=== PATIENT | male | born 1940 | race Caucasian/White ===

== ENCOUNTER 2018-07-17 10:44 | Inpatient (IN) | payer MEDICARE ==
[2018-07-17] VITALS (14 sets, daily range): BP systolic 19–181; BP diastolic 50–85
[~2018-07-17] VITALS: Ht 182.9 cm; Wt 118.8 kg
--- NOTE | 2018-07-17 11:28 | RAD ---
EXAM: Chest, single view. HISTORY: Shortness of air. Bradycardia. COMPARISON: None. FINDINGS: A frontal view of the chest is obtained. There is no infiltrate, pleural effusion or pneumothorax. There is a prominent cardiac silhouette, likely due to portable technique. There is mild interstitial prominence likely due to slightly decreased lung volumes. IMPRESSION: No acute pulmonary finding. Electronically signed by: Flor Grimes MD (07/17/2018 11:25 AM) [place] [id number]
--- NOTE | 2018-07-17 11:30 | RAD ---
Three-view left foot study Clinical indications: Bone spur causes pain in the top of the foot. FINDINGS: No acute fracture or dislocation or lytic process is seen. Prominent medial spurring of the first tarsal metatarsal joint and prominent spurring of the joint space between the proximal first and second metatarsal bones is seen. There is spurring and degenerative joint space loss of the second metatarsal phalangeal joint. There is mild joint space loss with mild dorsal spurring involving the first metatarsal phalangeal joint. Prominent plantar spur of the calcaneus is seen. IMPRESSION: No acute osseous abnormality. Degenerative osteoarthritis with spurring. Electronically signed by: Chapincito Garcia MD (07/17/2018 11:27 AM) [facility]
[2018-07-17 11:31] LABS: BASO % 1 % (0-3); EOS # 0.2 x10^3/uL (0.0-0.7); EOS % 4 % (0-3); HEMATOCRIT 43.9 % (39.0-53.0); HEMOGLOBIN 14.8 g/dL (13.0-17.5); LYMPH # 1.9 x10^3/uL (1.0-4.8); LYMPH % 34 % (24-48); MEAN CORPUSCULAR HEMOGLOBIN 32 pg (25-35); MEAN CORPUSCULAR HGB CONC 34 g/dL (31-37); MEAN CORPUSCULAR VOLUME 95 fL (79-100); MONO # 0.4 x10^3/uL (0.0-1.1); MONO % 7 % (0-9); NEUT # 3.1 x10^3uL (1.8-7.7); NEUT % 54 % (31-73); PLATELET COUNT 207 x10^3/uL (140-400); RED BLOOD COUNT 4.61 x10^6/uL (4.30-5.70); RED CELL DISTRIBUTION WIDTH 13.4 % (11.5-14.5); WHITE BLOOD COUNT 5.8 x10^3/uL (4.0-11.0)
[2018-07-17 11:39] LABS: CALCIUM 9.2 mg/dL (8.5-10.1); CREATININE 1.4 mg/dL (0.7-1.3); POTASSIUM 4.6 mmol/L (3.5-5.1)
[2018-07-17 11:45] LABS: ALBUMIN 3.7 g/dL (3.4-5.0); MAGNESIUM 2.3 mg/dL (1.8-2.4); TOTAL BILIRUBIN 0.8 mg/dL (0.2-1.0); TOTAL PROTEIN 7.4 g/dL (6.4-8.2)
[2018-07-17 11:48] LABS: PROTHROMBIN TIME PATIENT 13.8 SEC (11.7-14.0)
[2018-07-17 11:54] LABS: FREE T4 1.16 ng/dL (0.76-1.46); THYROID STIM HORMONE (TSH) 2.72 uIU/mL (0.358-3.74)
--- NOTE | 2018-07-17 12:06 | PHYS DOC ---
Past Medical History Past Medical History: No Pertinent History Past Surgical History: Other Additional Past Surgical Histo: hemorrhoids Alcohol Use: Occasionally Drug Use: None Adult General Chief Complaint Chief Complaint: BRADYCARDIA HPI HPI Patient is a 78 year old was sent here for [facility] clinic for complete heart block. Patient went there today for evaluation of a bone spur on his left foot. When they checked him in, his heart rate was slow so they did an EKG and it showed complete heart block so they sent him here for evaluation. Patient denies any chest pain, no trouble breathing, no nausea vomiting. Patient denies any dizziness. Patient is not on any medication beside some supplemental vitamins. He denies any history of heart problem, denies any history of blood clot disorder. Patient denies any recent travel or operation. He denies any cough or fever. Review of Systems Review of Systems Constitutional: Denies fever or chills [] Eyes: Denies change in visual acuity, redness, or eye pain [] HENT: Denies nasal congestion or sore throat [] Respiratory: Denies cough or shortness of breath [] Cardiovascular: No additional information not addressed in HPI [] GI: Denies abdominal pain, nausea, vomiting, bloody stools or diarrhea [] : Denies dysuria or hematuria [] Musculoskeletal: Denies back pain or joint pain [] Integument: Denies rash or skin lesions [] Neurologic: Denies headache, focal weakness or sensory changes [] Endocrine: Denies polyuria or polydipsia [] All other systems were reviewed and found to be within normal limits, except as documented in this note. Current Medications Current Medications Current Medications Medications (Trade) Dose Ordered Sig/[facility] Start Time Stop Time Status Last Admin Dose Admin Ondansetron HCl (Zofran) 4 mg PRN Q8HRS PRN 07/17/18 12:15 07/18/18 12:14 Allergies Allergies Allergies Coded Allergies Type Severity Reaction Last Updated Verified No Known Drug Allergies 07/17/18 No Physical Exam Physical Exam Constitutional: Well developed, well nourished, no acute distress, non-toxic appearance. [] HENT: Normocephalic, atraumatic, bilateral external ears normal, oropharynx moist, no oral exudates, nose normal. [] Eyes: PERRLA, EOMI, conjunctiva normal, no discharge. [] Neck: Normal range of motion, no tenderness, supple, no stridor. [] Cardiovascular:sinus bradycardia, no murmur [] Lungs & Thorax: Bilateral breath sounds clear to auscultation [] Abdomen: Bowel sounds normal, soft, no tenderness, no masses, no pulsatile masses. [] Skin: Warm, dry, no erythema, no rash. [] Back: No tenderness, no CVA tenderness. [] Extremities: No tenderness, no cyanosis, no clubbing, ROM intact, no edema. There is a bone spur on the top of left foot, no open wound. Neurologic: Alert and oriented X 3, normal motor function, normal sensory function, no focal deficits noted. [] Psychologic: Affect normal, judgement normal, mood normal. [] Current Patient Data Vital Signs Vital Signs Date Time Temp Pulse Resp B/P (MAP) Pulse Ox O2 Delivery O2 Flow Rate FiO2 07/17/18 10:44 98.0 28 172/76 (108) 95 Room Air 98.0 Lab Values Laboratory Tests Test 07/17/18 11:22 White Blood Count 5.8 x10^3/uL (4.0-11.0) Red Blood Count 4.61 x10^6/uL (4.30-5.70) Hemoglobin 14.8 g/dL (13.0-17.5) Hematocrit 43.9 % (39.0-53.0) Mean Corpuscular Volume 95 fL (79-100) Mean Corpuscular Hemoglobin 32 pg (25-35) Mean Corpuscular Hemoglobin Concent 34 g/dL (31-37) Red Cell Distribution Width 13.4 % (11.5-14.5) Platelet Count 207 x10^3/uL (140-400) Neutrophils (%) (Auto) 54 % (31-73) Lymphocytes (%) (Auto) 34 % (24-48) Monocytes (%) (Auto) 7 % (0-9) Eosinophils (%) (Auto) 4 % (0-3) H Basophils (%) (Auto) 1 % (0-3) Neutrophils # (Auto) 3.1 x10^3uL (1.8-7.7) Lymphocytes # (Auto) 1.9 x10^3/uL (1.0-4.8) Monocytes # (Auto) 0.4 x10^3/uL (0.0-1.1) Eosinophils # (Auto) 0.2 x10^3/uL (0.0-0.7) Basophils # (Auto) 0.0 x10^3/uL (0.0-0.2) Prothrombin Time 13.8 SEC (11.7-14.0) Prothrombin Time INR 1.1 (0.8-1.1) PTT 22 SEC (24-38) L Sodium Level 141 mmol/L (136-145) Potassium Level 4.6 mmol/L (3.5-5.1) Chloride Level 104 mmol/L (98-107) Carbon Dioxide Level 32 mmol/L (21-32) Anion Gap 5 (6-14) L Blood Urea Nitrogen 20 mg/dL (8-26) Creatinine 1.4 mg/dL (0.7-1.3) H Estimated GFR (Cockcroft-Gault) 49.0 BUN/Creatinine Ratio 14 (6-20) Glucose Level 100 mg/dL (70-99) H Calcium Level 9.2 mg/dL (8.5-10.1) Magnesium Level 2.3 mg/dL (1.8-2.4) Total Bilirubin 0.8 mg/dL (0.2-1.0) Aspartate Amino Transferase (AST) 17 U/L (15-37) Alanine Aminotransferase (ALT) 19 U/L (16-63) Alkaline Phosphatase 78 U/L (46-116) Troponin I Quantitative 0.035 ng/mL (0.000-0.055) UR-Zag-R-Type Natriuretic Peptide 688 pg/mL (0-449) H Total Protein 7.4 g/dL (6.4-8.2) Albumin 3.7 g/dL (3.4-5.0) Albumin/Globulin Ratio 1.0 (1.0-1.7) Thyroid Stimulating Hormone (TSH) 2.720 uIU/mL (0.358-3.74) Free Thyroxine 1.16 ng/dL (0.76-1.46) Laboratory Tests 07/17/18 11:22 Laboratory Tests 07/17/18 11:22 EKG EKG EKG SHOWN SINUS BRADYCARDIA WITH HEART RATE OF 29 BPM. However on the monitor, it appeared he has run of complete heart block. Will admit him to the hospital, will consult cardiology for further evaluation. Radiology/Procedures Radiology/Procedures [] [address] [place] [address] IMAGING REPORT Signed PATIENT: MELISSA MIJARES ACCOUNT: [id number] : 1940 LOCATION: ER AGE: 78 SEX: M EXAM STATUS: PRE ER ORD. PHYSICIAN: LISHA MANE DO REASON: soa PROCEDURE: PORTABLE CHEST 1V EXAM: Chest, single view. HISTORY: Shortness of air. Bradycardia. COMPARISON: None. FINDINGS: A frontal view of the chest is obtained. There is no infiltrate, pleural effusion or pneumothorax. There is a prominent cardiac silhouette, likely due to portable technique. There is mild interstitial prominence likely due to slightly decreased lung volumes. IMPRESSION: No acute pulmonary finding. Electronically signed by: Flor Lemus MD (07/17/2018 11:25 AM) [facility] DICTATED and SIGNED BY: FLOR LEMUS MD DATE: 07/17/18 1124 Course & Med Decision Making Course & Med Decision Making Pertinent Labs and Imaging studies reviewed. (See chart for details) [] Dragon Disclaimer Dragon Disclaimer This electronic medical record was generated, in whole or in part, using a voice recognition dictation system. Departure Departure Impression: Primary Impression: Complete heart block Disposition: ADMITTED INPATIENT Admitting Physician: Sandeep Randall Condition: STABLE Referrals: MONICA HOOK (PCP) LISHA MANE DO Jul 17, 2018 12:06
[2018-07-17] MEDS ORDERED: ONDANSETRON PF 4 MG/2 ML VIAL. IV PRN (12:15)
--- NOTE | 2018-07-17 12:34 | PDOC1 ---
History and Physical Date of Admission Date of Admission DATE: 07/17/18 TIME: 12:34 Identification/Chief Complaint Chief Complaint SEEN IN ER ,78 year old was sent here for [facility] doctor clinic for complete heart block. Patient went there today for evaluation of a bone spur on his left foot.heart rate was slow so they did an EKG and it showed complete heart block Patient denies any chest pain, no trouble breathing, no nausea vomiting. denies any dizziness. Patient is not on any medication beside some supplemental vitamins. He denies any history of heart problem, denies any history of blood clot disorder. pulse now 30 in ER AT BEDSIDE MONITOR He denies any cough or fever. Past Medical History Past Medical History Past Medical History Past Medical History Past Medical History: htn Past Surgical History: Other Additional Past Surgical Histo: hemorrhoids Alcohol Use: Occasionally Drug Use: None family hx obesity ENT: No pertinent hx Renal/: No pertinent hx Family History Family History: High Cholestrol Social History Smoke: No ALCOHOL: none Drugs: None Current Problem List Problem List Problems Medical Problems: (1) Complete heart block Status: Acute Current Medications Current Medications Current Medications Ondansetron HCl (Zofran) 4 mg PRN Q8HRS PRN IV NAUSEA/VOMITING; Start 07/17/18 at 12:15; Stop 07/18/18 at 12:14 Dopamine HCl/ Dextrose 250 ml @ 0 mls/hr 1X ONCE IV ; Start 07/17/18 at 12:30; Stop 07/17/18 at 12:31; Status DC Allergies Allergies: Coded Allergies: No Known Drug Allergies (Unverified , 07/17/18) ROS Review of System Review of Systems Review of Systems Constitutional: Denies fever or chills [] Eyes: Denies change in visual acuity, redness, or eye pain [] HENT: Denies nasal congestion or sore throat [] Respiratory: Denies cough or shortness of breath [] Cardiovascular: No additional information not addressed in HPI [] GI: Denies abdominal pain, nausea, vomiting, bloody stools or diarrhea [] : Denies dysuria or hematuria [] Musculoskeletal: Denies back pain or joint pain [] Integument: Denies rash or skin lesions [] Neurologic: Denies headache, focal weakness or sensory changes [] Endocrine: Denies polyuria or polydipsia [] 14 PT systems were reviewed and found to be within normal limits, except as documented General: No: Chills, Night Sweats, Fatigue, Malaise, Appetite, Other PSYCHOLOGICAL ROS: No: Anxiety, Behavioral Disorder, Concentration difficultie , Decreased libido, Depression, Disorientation, Hallucinations, Hostility, Irritablity, Memory difficulties, Mood Swings, Obsessive thoughts, Physical abuse, Sexual abuse, Sleep disturbances, Suicidal ideation, Other HEENT: No: Heacaches, Visual Changes, Hearing change, Nasal congestion, Nasal discharge, Oral lesions, Sinus pain, Sore Throat, Epistaxis, Sneezing, Snoring, Tinnitus, Vertigo, Vocal changes, Other Hematological and Lymphatic: No: Bleeding Problems, Blood Clots, Blood Transfusions, Brusing, Night Sweats, Pallor, Swollen Lymph Nodes, Other Respiratory: No: Cough, Hemoptysis, Orthopnea, Pleuritic Pain, Shortness of breath, SOB with excertion, Sputum Changes, Stridor, Tachypnea, Wheezing, Other Cardiovascular: No Chest Pain, No Palpitations, No Orthopnea, No Paroxysmal Noc. Dyspnea, No Edema, No Lt Headedness, No Other Gastrointestinal: No Nausea, No Vomiting, No Abdominal Pain, No Diarrhea, No Constipation, No Melena, No Hematochezia, No Other Musculoskeletal: Yes Gait Disturbance, Yes Joint Pain Neurological: No Behavorial Changes, No Bowel/Bladder ControlChng, No Confusion , No Dizziness, No Gait Disturbance, No Headaches, No Impaired Coord/balance, No Memory Loss, No Numbness/Tingling, No Seizures, No Speech Problems, No Tremors, No Visual Changes, No Weakness, No Other Physical Exam Physical Exam Physical Exam Physical Exam Constitutional: Well developed, well nourished, no acute distress, non-toxic appearance. [] HENT: Normocephalic, atraumatic, bilateral external ears normal, oropharynx moist, no oral exudates, nose normal. [] Eyes: PERRLA, EOMI, conjunctiva normal, no discharge. [] Neck: Normal range of motion, no tenderness, supple, no stridor. [] Cardiovascular:sinus bradycardia RATE 29-32 , no murmur [] Lungs & Thorax: Bilateral breath sounds clear to auscultation [] Abdomen: Bowel sounds normal, soft, no tenderness, no masses, no pulsatile masses. [] Skin: Warm, dry, no erythema, no rash. [] Back: No tenderness, no CVA tenderness. [] Extremities: No tenderness, no cyanosis, no clubbing, ROM intact, no edema. There is a bone spur on the top of left foot, Neurologic: Alert and oriented X 3, normal motor function, normal sensory function, no focal deficits noted. [] Psychologic: Affect normal, judgement normal, mood normal. [] General: Alert, Oriented X3, Cooperative, No acute distress HEENT: Atraumatic, PERRLA, EOMI, Mucous membr. moist/pink Lungs: Clear to auscultation, Normal air movement Heart: no thrills, no murmurs Abdomen: Normal bowel sounds, Soft Rectal Exam: not examined Extremities: No cyanosis Neuro: Normal speech, Cranial nerves 3-12 NL Psych/Mental Status: Mental status NL, Mood NL Vitals Vitals Vital Signs Date Time Temp Pulse Resp B/P (MAP) Pulse Ox O2 Delivery O2 Flow Rate FiO2 07/17/18 10:44 98.0 28 172/76 (108) 95 Room Air 98.0 Labs Labs Laboratory Tests Test 07/17/18 11:22 White Blood Count 5.8 x10^3/uL (4.0-11.0) Red Blood Count 4.61 x10^6/uL (4.30-5.70) Hemoglobin 14.8 g/dL (13.0-17.5) Hematocrit 43.9 % (39.0-53.0) Mean Corpuscular Volume 95 fL (79-100) Mean Corpuscular Hemoglobin 32 pg (25-35) Mean Corpuscular Hemoglobin Concent 34 g/dL (31-37) Red Cell Distribution Width 13.4 % (11.5-14.5) Platelet Count 207 x10^3/uL (140-400) Neutrophils (%) (Auto) 54 % (31-73) Lymphocytes (%) (Auto) 34 % (24-48) Monocytes (%) (Auto) 7 % (0-9) Eosinophils (%) (Auto) 4 % (0-3) Basophils (%) (Auto) 1 % (0-3) Neutrophils # (Auto) 3.1 x10^3uL (1.8-7.7) Lymphocytes # (Auto) 1.9 x10^3/uL (1.0-4.8) Monocytes # (Auto) 0.4 x10^3/uL (0.0-1.1) Eosinophils # (Auto) 0.2 x10^3/uL (0.0-0.7) Basophils # (Auto) 0.0 x10^3/uL (0.0-0.2) Prothrombin Time 13.8 SEC (11.7-14.0) Prothromb Time International Ratio 1.1 (0.8-1.1) Activated Partial Thromboplast Time 22 SEC (24-38) Sodium Level 141 mmol/L (136-145) Potassium Level 4.6 mmol/L (3.5-5.1) Chloride Level 104 mmol/L (98-107) Carbon Dioxide Level 32 mmol/L (21-32) Anion Gap 5 (6-14) Blood Urea Nitrogen 20 mg/dL (8-26) Creatinine 1.4 mg/dL (0.7-1.3) Estimated GFR (Cockcroft-Gault) 49.0 BUN/Creatinine Ratio 14 (6-20) Glucose Level 100 mg/dL (70-99) Calcium Level 9.2 mg/dL (8.5-10.1) Magnesium Level 2.3 mg/dL (1.8-2.4) Total Bilirubin 0.8 mg/dL (0.2-1.0) Aspartate Amino Transf (AST/SGOT) 17 U/L (15-37) Alanine Aminotransferase (ALT/SGPT) 19 U/L (16-63) Alkaline Phosphatase 78 U/L (46-116) Troponin I Quantitative 0.035 ng/mL (0.000-0.055) ZG-Gxk-C-Type Natriuretic Peptide 688 pg/mL (0-449) Total Protein 7.4 g/dL (6.4-8.2) Albumin 3.7 g/dL (3.4-5.0) Albumin/Globulin Ratio 1.0 (1.0-1.7) Thyroid Stimulating Hormone (TSH) 2.720 uIU/mL (0.358-3.74) Free Thyroxine 1.16 ng/dL (0.76-1.46) Laboratory Tests Test 07/17/18 11:22 White Blood Count 5.8 x10^3/uL (4.0-11.0) Red Blood Count 4.61 x10^6/uL (4.30-5.70) Hemoglobin 14.8 g/dL (13.0-17.5) Hematocrit 43.9 % (39.0-53.0) Mean Corpuscular Volume 95 fL (79-100) Mean Corpuscular Hemoglobin 32 pg (25-35) Mean Corpuscular Hemoglobin Concent 34 g/dL (31-37) Red Cell Distribution Width 13.4 % (11.5-14.5) Platelet Count 207 x10^3/uL (140-400) Neutrophils (%) (Auto) 54 % (31-73) Lymphocytes (%) (Auto) 34 % (24-48) Monocytes (%) (Auto) 7 % (0-9) Eosinophils (%) (Auto) 4 % (0-3) Basophils (%) (Auto) 1 % (0-3) Neutrophils # (Auto) 3.1 x10^3uL (1.8-7.7) Lymphocytes # (Auto) 1.9 x10^3/uL (1.0-4.8) Monocytes # (Auto) 0.4 x10^3/uL (0.0-1.1) Eosinophils # (Auto) 0.2 x10^3/uL (0.0-0.7) Basophils # (Auto) 0.0 x10^3/uL (0.0-0.2) Prothrombin Time 13.8 SEC (11.7-14.0) Prothromb Time International Ratio 1.1 (0.8-1.1) Activated Partial Thromboplast Time 22 SEC (24-38) Sodium Level 141 mmol/L (136-145) Potassium Level 4.6 mmol/L (3.5-5.1) Chloride Level 104 mmol/L (98-107) Carbon Dioxide Level 32 mmol/L (21-32) Anion Gap 5 (6-14) Blood Urea Nitrogen 20 mg/dL (8-26) Creatinine 1.4 mg/dL (0.7-1.3) Estimated GFR (Cockcroft-Gault) 49.0 BUN/Creatinine Ratio 14 (6-20) Glucose Level 100 mg/dL (70-99) Calcium Level 9.2 mg/dL (8.5-10.1) Magnesium Level 2.3 mg/dL (1.8-2.4) Total Bilirubin 0.8 mg/dL (0.2-1.0) Aspartate Amino Transf (AST/SGOT) 17 U/L (15-37) Alanine Aminotransferase (ALT/SGPT) 19 U/L (16-63) Alkaline Phosphatase 78 U/L (46-116) Troponin I Quantitative 0.035 ng/mL (0.000-0.055) SM-Tqk-W-Type Natriuretic Peptide 688 pg/mL (0-449) Total Protein 7.4 g/dL (6.4-8.2) Albumin 3.7 g/dL (3.4-5.0) Albumin/Globulin Ratio 1.0 (1.0-1.7) Thyroid Stimulating Hormone (TSH) 2.720 uIU/mL (0.358-3.74) Free Thyroxine 1.16 ng/dL (0.76-1.46) VTE Prophylaxis Ordered VTE Prophylaxis Devices: Yes VTE Pharmacological Prophylaxi: Yes Assessment/Plan Assessment/Plan IMPRESSION severe sinus bradycardia. OAS with CPAP OBESITY PLAN ASA and multiple OTC supplements echo NPO. dopamine gtt pacemaker implantation due to SSS. PER CARDIIOLOGY GI PROPHYLAXIS DVT PROPHYLAXIS CARDIOLOGY CONSULT 35 MIN CC TIME JUANA JOHNSON MD Jul 17, 2018 12:34
--- NOTE | 2018-07-17 12:56 | PDOC2 ---
BISHOP BENNETT FIELD MECHANICAL METER TESTER 07/17/18 1256: CARDIAC CONSULT DATE OF CONSULT Date of Consult DATE: 07/17/18 TIME: 12:41 REASON FOR CONSULT Reason for Consult: bradycardia REFERRING PHYSICIAN Referring Physician: Dr. Olivares SOURCE Source: Chart review, Patient HISTORY OF PRESENT ILLNESS HISTORY OF PRESENT ILLNESS This is a 78 yo male who presented from primary care office with concerns for complete heart block, severe bradycardia with a HR near 30. Patient presented to his primary care provider's office secondary to bone spur on his left foot. During routine vital, HR noted to be significantly low. EKG was scheduled. HR noted at 29. Patient was referred to the ED for further evaluation. Patient presently resting in bed. No specific complaints. Did have some dizziness upon standing in the ED. No recent chest pain, palpitations, diaphoresis, syncope, or PND. Family does reports that he has been more sleepy recently. No history of arrhythmias or bradycardia. No previous history of heart disease. PAST MEDICAL HISTORY Cardiovascular: No pertinent hx Pulmonary: Other (STEPHANIE with CPAP) CENTRAL NERVOUS SYSTEM: Other (no pertinent hx) GI: No pertinent hx Heme/Onc: No pertinent hx Hepatobiliary: No pertinent hx Psych: No pertinent hx Musculoskeletal: Osteoarthritis Rheumatologic: No pertinent hx Infectious disease: No pertinent hx ENT: No pertinent hx Renal/: No pertinent hx Endocrine: No pertinent hx Dermatology: No pertinent hx PAST SURGICAL HISTORY Past Surgical History: No pertinent history FAMILY HISTORY Family History: Diabetes, Stroke (father), Other (SSS s/p PPM (both sisters)) SOCIAL HISTORY Smoke: No ALCOHOL: none Drugs: None Lives: Alone ALLERGIES ALLERGIES: Coded Allergies: No Known Drug Allergies (Unverified , 07/17/18) ROS Review of System 14 point ROS conducted with pertinent positives noted above in HPI PHYSICAL EXAM General: Alert, Oriented X3, Cooperative, No acute distress HEENT: Atraumatic Lungs: Clear to auscultation, Normal air movement Heart: Other (tele SB rate 30) Abdomen: Soft, No tenderness Extremities: No edema, Normal pulses Skin: No significant lesion Neuro: Normal speech, Sensation intact Psych/Mental Status: Mental status NL, Mood NL MUSCULOSKELETAL: Osteoarthritic changes both hands VITALS VITALS Vital Signs Date Time Temp Pulse Resp B/P (MAP) Pulse Ox O2 Delivery O2 Flow Rate FiO2 07/17/18 12:36 30 25 176/74 (108) 96 Room Air 2/25/19 10:44 98.0 98.0 LABS Lab: Laboratory Tests Test 07/17/18 11:22 White Blood Count 5.8 x10^3/uL (4.0-11.0) Red Blood Count 4.61 x10^6/uL (4.30-5.70) Hemoglobin 14.8 g/dL (13.0-17.5) Hematocrit 43.9 % (39.0-53.0) Mean Corpuscular Volume 95 fL (79-100) Mean Corpuscular Hemoglobin 32 pg (25-35) Mean Corpuscular Hemoglobin Concent 34 g/dL (31-37) Red Cell Distribution Width 13.4 % (11.5-14.5) Platelet Count 207 x10^3/uL (140-400) Neutrophils (%) (Auto) 54 % (31-73) Lymphocytes (%) (Auto) 34 % (24-48) Monocytes (%) (Auto) 7 % (0-9) Eosinophils (%) (Auto) 4 % (0-3) Basophils (%) (Auto) 1 % (0-3) Neutrophils # (Auto) 3.1 x10^3uL (1.8-7.7) Lymphocytes # (Auto) 1.9 x10^3/uL (1.0-4.8) Monocytes # (Auto) 0.4 x10^3/uL (0.0-1.1) Eosinophils # (Auto) 0.2 x10^3/uL (0.0-0.7) Basophils # (Auto) 0.0 x10^3/uL (0.0-0.2) Prothrombin Time 13.8 SEC (11.7-14.0) Prothromb Time International Ratio 1.1 (0.8-1.1) Activated Partial Thromboplast Time 22 SEC (24-38) Sodium Level 141 mmol/L (136-145) Potassium Level 4.6 mmol/L (3.5-5.1) Chloride Level 104 mmol/L (98-107) Carbon Dioxide Level 32 mmol/L (21-32) Anion Gap 5 (6-14) Blood Urea Nitrogen 20 mg/dL (8-26) Creatinine 1.4 mg/dL (0.7-1.3) Estimated GFR (Cockcroft-Gault) 49.0 BUN/Creatinine Ratio 14 (6-20) Glucose Level 100 mg/dL (70-99) Calcium Level 9.2 mg/dL (8.5-10.1) Magnesium Level 2.3 mg/dL (1.8-2.4) Total Bilirubin 0.8 mg/dL (0.2-1.0) Aspartate Amino Transf (AST/SGOT) 17 U/L (15-37) Alanine Aminotransferase (ALT/SGPT) 19 U/L (16-63) Alkaline Phosphatase 78 U/L (46-116) Troponin I Quantitative 0.035 ng/mL (0.000-0.055) AJ-Cgk-C-Type Natriuretic Peptide 688 pg/mL (0-449) Total Protein 7.4 g/dL (6.4-8.2) Albumin 3.7 g/dL (3.4-5.0) Albumin/Globulin Ratio 1.0 (1.0-1.7) Thyroid Stimulating Hormone (TSH) 2.720 uIU/mL (0.358-3.74) Free Thyroxine 1.16 ng/dL (0.76-1.46) ASSESSMENT/PLAN ASSESSMENT/PLAN 1. SSS; EKG notable for severe sinus bradycardia. EKG at PCP office, EKG in ED , and tele reviewed in ED. All notable for severe sinus bradycardia with a HR near 30. No evidence of complete heart block noted. TSH WNL. Electrolytes WNL. 2. OAS with CPAP 3. ? CKD; Cr 1.4 Recommendations Awaiting med list from PCP office. Takes ASA and multiple OTC supplements Check echo to assess LV systolic function Keep NPO. Start dopamine gtt. D/w ED RN If no medications noted with AV estephania blocking properties, will proceed with pacemaker implantation due to SSS. R/b/a discussed with patient and family and they are agreeable. RAYMOND AMADOR MD 07/17/182042: CARDIAC CONSULT ASSESSMENT/PLAN ASSESSMENT/PLAN Patient seen and examined. Agree with VENETIAN BLIND INSTALLER's assessment and plan. 2D echo showed normal LV function Plan for permanent pacemaker implantation for sick sinus syndrome with severe symptomatic bradycardia Thank you for your consultation BISHOP BENNETT APRN Jul 17, 2018 12:56 RAYMOND AMADOR MD Jul 17, 2018 20:43
[2018-07-17] MEDS ORDERED: IV NORMAL SALINE 1000ML BAG 1,000 ML IV SCH (14:08)
[2018-07-17] MEDS ORDERED: MAG HYDROX/ALUMINUM HYD/SIMETH 30 ML ORAL.SUSP PO PRN (14:15)
[2018-07-17] MEDS ORDERED: ACETAMINOPHEN 325 MG TABLET. PO PRN (14:15)
[2018-07-17] MEDS ORDERED: DOCUSATE SODIUM 100 MG CAPSULE. PO PRN (14:15)
[2018-07-17 14:16] LABS: CHOLESTEROL/HDL RATIO 4.9
--- NOTE | 2018-07-17 14:52 | CARD ---
MR#: [id number] Date of Study: 07/17/2018 Ordering Physician: BISHOP BENNETT, Referring Physician: JUANA JOHNSON, Tech: Flavia Genao APPROVED REPORT EXAM: Two-dimensional and M-mode echocardiogram with Doppler and color Doppler. Other Information Quality : AverageHR: 30bpm INDICATION Dyspnea Sick Sinus Syndrome, Bradycardia 2D DIMENSIONS Left Atrium(2D)4.6 (1.6-4.0cm)IVSd1.4 (0.7-1.1cm) Aortic Root(2D)3.4 (2.0-3.7cm)LVDd6.4 (3.9-5.9cm) LVOT Diameter2.3 (1.8-2.4cm)PWd1.3 (0.7-1.1cm) LVDs3.3 (2.5-4.0cm)FS (%) 48.9 % SV163.5 mlLVEF(%)79.3 (>50%) Aortic Valve AoV Peak Mauro.156.9cm/sAoV VTI39.0cm AO Peak GR.9.8mmHgLVOT VTI 25.97cm AO Mean GR.5mmHg Mitral Valve MV E Dvlgxppl89.9cm/sMV DECEL WFRS454ox MV A Ypzlucyt64.8cm/sE/A Ratio1.2 TDI Lateral E' P. V11.13cm/sMedial E' P. V8.75cm/s E/Lateral E'7.1E/Medial E'9.0 Tricuspid Valve TR P. Lvbdphpf455ri/sTR Peak Gr.34mmHg Pulmonary Vein S1 Pcptfwgd69.8cm/sPVa sjtiyyat86qrse LEFT VENTRICLE The left ventricle is normal size. There is moderate concentric left ventricular hypertrophy. The lef t ventricular systolic function is normal. The Ejection Fraction is 60%. There is normal LV segmental wall motion. RIGHT VENTRICLE The right ventricle is normal size. There is normal right ventricular wall thickness. The right ventr icular systolic function is normal. ATRIA The left atrium is moderately dilated. The right atrium is borderline dilated. The interatrial septum is intact with no evidence for an atrial septal defect or patent foramen ovale as noted on 2-D or Do ppler imaging. AORTIC VALVE The aortic valve is thickened but opens well. Doppler and Color Flow revealed mild aortic regurgitati on. There is no significant aortic valvular stenosis. MITRAL VALVE The mitral valve is normal in structure and function. There is no evidence of mitral valve prolapse. There is no mitral valve stenosis. Doppler and Color-flow revealed trace mitral regurgitation. TRICUSPID VALVE The tricuspid valve is normal in structure and function. Doppler and Color Flow revealed trace to mil d tricuspid regurgitation. There is no tricuspid valve stenosis. PULMONIC VALVE The pulmonic valve is not well visualized. Doppler and Color Flow revealed no pulmonic valvular regur gitation. GREAT VESSELS The aortic root is normal in size. The IVC is dilated and collapses <50% with inspiration. PERICARDIAL EFFUSION There is no evidence of significant pericardial effusion. Critical Notification Critical Value: No <Conclusion> The left ventricular systolic function is normal. The Ejection Fraction is 60%. There is normal LV segmental wall motion. The left atrium is moderately dilated. Mild aortic regurgitation. Trace mitral regurgitation. Trace to mild tricuspid regurgitation. There is no evidence of significant pericardial effusion. Signed by : Mark Fong, Electronically Approved : 07/17/2018 14:51:53
[2018-07-17] MEDS ORDERED: ENOXAPARIN 40 MG/0.4 ML SYRINGE. SQ SCH (15:00)
[2018-07-17] MEDS ORDERED: LIDOCAINE 2%/EPI 1:100,000 20 ML VIAL. ONE (15:56)
--- NOTE | 2018-07-17 16:14 | EKG ---
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
--- NOTE | 2018-07-17 16:19 | NUR ---
1300 Adm from ER to ICU-6 after seen in podiatrists office. Pulse noted there to be 30 or less, no compromise in SBP,mentation, Cardiology consult w add on for placement permanent pacer. Pre/post op teaching verbal and printed provided w questions answered as needed. #2 IV started w/o difficulty inner aspect RFA. 1605 Transported to analytical laboratory technician,full monitor,permits signed /charted.
[2018-07-17] MEDS ORDERED: MIDAZOLAM HCL/PF 5 MG/5 ML VIAL. ONE (16:25)
[2018-07-17] MEDS ORDERED: fentaNYL PF VIAL 250 MCG/5 ML VIAL ONE (16:26)
[2018-07-17] MEDS: PANTOPRAZOLE 40 MG TABLET.DR. PO SCH (16:30)
[2018-07-17] MEDS ORDERED: BACITRACIN 50,000 UNIT in IV NORMAL SALINE 250ML 250 ML IRR ONE (16:30)
[2018-07-17] MEDS ORDERED: LIDOCAINE 2%/EPI 1:100,000 20 ML VIAL. IJ ONE (17:00)
[2018-07-17] MEDS ORDERED: fentaNYL PF VIAL 250 MCG/5 ML VIAL IV ONE (17:00)
[2018-07-17] MEDS ORDERED: MIDAZOLAM HCL/PF 5 MG/5 ML VIAL. IV ONE (17:00)
--- NOTE | 2018-07-17 18:11 | CARD ---
MR#: [id number] Date of Study: 07/17/2018 Ordering Physician: BISHOP BENNETT, Referring Physician: JUANA JOHNSON Tech: MAYA GONZALEZ RTR APPROVED REPORT Technologist: MAYA GONZALEZ RTR Nurse: JUSTIN FINN RN Procedure(s) performed: Successful implantation of [employer]. Long's dual-chamber permanent pacemaker Moderate sedation: 45 mins INDICATION The indication(s) include : Sick sinus syndrome with severe symptomatic bradycardia. CSHA Clinical Frailty Scale CSHA Clinical Frailty Scale: Well Heart Failure Heart Failure: No PROCEDURE NARRATIVE After explaining the risks, benefits and alternative options, informed consent was obtained from sade ent. Patient was brought to the cardiac Manager Immunology and his left chest and shoulder were prepped and darren ped in the usual fashion. 20 mL of 2% lidocaine was infiltrated into the skin and subcutaneous tissue s for local anesthesia. An incision was made over the left infraclavicular fossa and using blunt diss ection and cautery a pocket was created. Venous access was obtained in the left subclavian vein and t wo [address] [place] sheaths inserted. A [address] Long's bipolar active fixation right ventricular lead model 2088TC/58, serial number [id number] was advanced under fluoroscopy guidance and the tip was positioned in the right ventricular apex. Fol lowing this, a St. Long's bipolar active fixation right atrial lead model 2088TC/52, serial number [id number] was positioned in the right atrial appendage under fluoroscopy guidance. The leads were secur ed into place and attached to a St. Long's dual-chamber permanent pacemaker generator model HI6954, s erial number [id number]. This was placed in the pocket that was subsequently closed in 3 layers. Hemosta sis was secured. At the end of procedure, the right ventricular lead showed a sensing amplitude of 10.2 mV, impedance of 530 ohms and a threshold of 0.5 V. The right atrial lead showed a sensing amplitude of 3 mV, imped ance of 490 ohms and a threshold of 1 V. Patient part of the procedure well. There were no immediate complications. Conclusion Successful implantation of St. Long's dual-chamber permanent pacemaker for sick sinus syndrome and se mili symptomatic bradycardia. Signed by : Mark Fong, Electronically Approved : 07/17/2018 18:10:55
--- NOTE | 2018-07-17 18:12 | PDOC ---
MODERATE SEDATION ASSESSMENT RISKS/ALTERNATIVES Risks/Alternatives Risks and alternatives of this type of sedation and procedure discussed with: RISK/ALTERNATIVES: Patient H & P ON CHART H & P H & P on chart and reviewed for co-morbid conditions and appropriate labs. H&P ON CHART: Yes STATUS PREG STATUS ASSESSED: N/A MEDS/ALLERGIES REVIEWED Meds/Allergies Reviewed Medications and Allergies including time and route of recently administered narcotics and sedatives. MEDS/ALLERGIES REVIEWED: Yes ASA RATING ASA RATING: III AIRWAY ASSESSMENT Airway Assessment Airway patency, oral function limitations, presence of caps, crowns, dentures, partials, and ability to extend neck assessed. AIRWAY ASSESSMENT: Yes MALLAMPATI SCORE MALLAMPATI SCORE: II PRE-SEDATION ASSESSMENT PRE-SEDATION ASSESSMENT: Yes RAYMOND AMADOR MD Jul 17, 2018 18:11
[2018-07-17] MEDS ORDERED: NO ANTICOAGULANT THERAPY. MC PRN (18:15)
--- NOTE | 2018-07-17 19:27 | NUR ---
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 Good capture/spike,NBP stable. Aware ,alert,oriented. Able to eat w/o difficulty Reinforced BR till am.Pacer rep at bedside w equipment explanation. Family at bedside for discussion.
--- NOTE | 2018-07-17 19:40 | RAD ---
Indication:ICU PATIENT. POST PACEMAKER TECHNIQUE:Portable AP chest X-ray COMPARISON:None FINDINGS: Heart is normal in size. Dual lead cardiac pacer is seen with its leads projecting over the heart. Lungs are clear. No pneumothorax or pleural effusion. Visualized bony thorax is within normal limits. IMPRESSION: No acute pulmonary process. Electronically signed by: Jovi Galan DO (07/17/2018 7:37 PM) [facility]
[2018-07-18] VITALS (13 sets, daily range): BP systolic 113–205; BP diastolic 58–158
[2018-07-18] MEDS ORDERED: NITROGLYCERIN OINT 1 GM PACKET. TP PRN (01:15)
[2018-07-18] MEDS: amLODIPine BESYLATE 5 MG TABLET PO SCH ×2 (01:36→08:08)
[2018-07-18 06:34] LABS: BASO % 0 % (0-3); EOS # 0.2 x10^3/uL (0.0-0.7); EOS % 5 % (0-3); HEMATOCRIT 39.3 % (39.0-53.0); HEMOGLOBIN 13.1 g/dL (13.0-17.5); LYMPH # 1.4 x10^3/uL (1.0-4.8); LYMPH % 26 % (24-48); MEAN CORPUSCULAR HEMOGLOBIN 32 pg (25-35); MEAN CORPUSCULAR HGB CONC 33 g/dL (31-37); MEAN CORPUSCULAR VOLUME 96 fL (79-100); MONO # 0.3 x10^3/uL (0.0-1.1); MONO % 6 % (0-9); NEUT # 3.4 x10^3uL (1.8-7.7); NEUT % 63 % (31-73); PLATELET COUNT 172 x10^3/uL (140-400); RED BLOOD COUNT 4.11 x10^6/uL (4.30-5.70); RED CELL DISTRIBUTION WIDTH 13.6 % (11.5-14.5); WHITE BLOOD COUNT 5.3 x10^3/uL (4.0-11.0)
[2018-07-18 06:56] LABS: ALBUMIN 3.1 g/dL (3.4-5.0); CALCIUM 7.7 mg/dL (8.5-10.1); CREATININE 1.1 mg/dL (0.7-1.3); GFR 64.7; POTASSIUM 3.9 mmol/L (3.5-5.1); TOTAL BILIRUBIN 0.6 mg/dL (0.2-1.0); TOTAL PROTEIN 6.2 g/dL (6.4-8.2)
[2018-07-18] MEDS: PANTOPRAZOLE 40 MG TABLET.DR. PO SCH (08:10)
[2018-07-18 08:22] LABS: BILIRUBIN,URINE NEGATIVE (NEG); CLARITY,URINE CLEAR; COLOR,URINE YELLOW; NITRITE,URINE NEGATIVE (NEG); PROTEIN,URINE NEGATIVE (NEG-TRACE); UROBILINOGEN,URINE 0.2 mg/dL (0.2 mg/dL)
[2018-07-18 08:28] LABS: BACTERIA,URINE 0 /HPF (0-FEW); RBC,URINE OCC /HPF (0-2); SQUAMOUS EPITHELIAL CELL,UR OCC /LPF; WBC,URINE 0 /HPF (0-4)
--- NOTE | 2018-07-18 09:16 | RAD ---
CHEST PA LATERAL History: POST OP DAY 1 PACEMAKER PLACEMENT Comparison: 07/17/2018 Findings: 2 views of the chest are submitted. There is again dual lead left electronic cardiac device. There is no significant dependent pleural fluid. No pneumothorax is identified. There is interstitial opacity bilaterally with basilar predominance relatively increased. Pericardial cardiac silhouette is similar. There is degenerative change of the shoulders. Impression: 1. No pneumothorax is identified. There is increased interstitial opacity which could be due to interstitial edema. Electronically signed by: Quinton Cruz MD (07/18/2018 9:13 AM) [id number]
--- NOTE | 2018-07-18 09:20 | PDOC ---
SILVIA ESPINOZA WINDOW AND DOOR INSTALLER 07/18/18 0920: CARDIO Progress Notes Date and Time Date of Service 07/18/2018 Time of Evaluation 0900 Subjective Subjective: No Chest Pain, No shortness of breath, No Palpitations Vitals Vitals Vital Signs Date Time Temp Pulse Resp B/P (MAP) Pulse Ox O2 Delivery O2 Flow Rate FiO2 07/18/18 08:08 62 145/61 07/18/18 05:30 18 98 Room Air 07/18/18 04:00 97.8 97.8 07/17/18 18:15 2.0 Weight Weight [ ] Input and Output Intake and Output Intake and Output 07/18/18 07:00 Intake Total 950 ml Output Total 1075 ml Balance -125 ml Intake Oral 950 ml Output Urine Total 1075 ml Laboratory Labs Laboratory Tests Test 07/17/18 11:22 07/18/18 06:00 07/18/18 06:20 White Blood Count 5.8 x10^3/uL (4.0-11.0) 5.3 x10^3/uL (4.0-11.0) Red Blood Count 4.61 x10^6/uL (4.30-5.70) 4.11 x10^6/uL (4.30-5.70) Hemoglobin 14.8 g/dL (13.0-17.5) 13.1 g/dL (13.0-17.5) Hematocrit 43.9 % (39.0-53.0) 39.3 % (39.0-53.0) Mean Corpuscular Volume 95 fL (79-100) 96 fL (79-100) Mean Corpuscular Hemoglobin 32 pg (25-35) 32 pg (25-35) Mean Corpuscular Hemoglobin Concent 34 g/dL (31-37) 33 g/dL (31-37) Red Cell Distribution Width 13.4 % (11.5-14.5) 13.6 % (11.5-14.5) Platelet Count 207 x10^3/uL (140-400) 172 x10^3/uL (140-400) Neutrophils (%) (Auto) 54 % (31-73) 63 % (31-73) Lymphocytes (%) (Auto) 34 % (24-48) 26 % (24-48) Monocytes (%) (Auto) 7 % (0-9) 6 % (0-9) Eosinophils (%) (Auto) 4 % (0-3) 5 % (0-3) Basophils (%) (Auto) 1 % (0-3) 0 % (0-3) Neutrophils # (Auto) 3.1 x10^3uL (1.8-7.7) 3.4 x10^3uL (1.8-7.7) Lymphocytes # (Auto) 1.9 x10^3/uL (1.0-4.8) 1.4 x10^3/uL (1.0-4.8) Monocytes # (Auto) 0.4 x10^3/uL (0.0-1.1) 0.3 x10^3/uL (0.0-1.1) Eosinophils # (Auto) 0.2 x10^3/uL (0.0-0.7) 0.2 x10^3/uL (0.0-0.7) Basophils # (Auto) 0.0 x10^3/uL (0.0-0.2) 0.0 x10^3/uL (0.0-0.2) Prothrombin Time 13.8 SEC (11.7-14.0) Prothromb Time International Ratio 1.1 (0.8-1.1) Activated Partial Thromboplast Time 22 SEC (24-38) Sodium Level 141 mmol/L (136-145) 146 mmol/L (136-145) Potassium Level 4.6 mmol/L (3.5-5.1) 3.9 mmol/L (3.5-5.1) Chloride Level 104 mmol/L (98-107) 108 mmol/L (98-107) Carbon Dioxide Level 32 mmol/L (21-32) 28 mmol/L (21-32) Anion Gap 5 (6-14) 10 (6-14) Blood Urea Nitrogen 20 mg/dL (8-26) 17 mg/dL (8-26) Creatinine 1.4 mg/dL (0.7-1.3) 1.1 mg/dL (0.7-1.3) Estimated GFR (Cockcroft-Gault) 49.0 64.7 BUN/Creatinine Ratio 14 (6-20) 15 (6-20) Glucose Level 100 mg/dL (70-99) 84 mg/dL (70-99) Calcium Level 9.2 mg/dL (8.5-10.1) 7.7 mg/dL (8.5-10.1) Magnesium Level 2.3 mg/dL (1.8-2.4) Total Bilirubin 0.8 mg/dL (0.2-1.0) 0.6 mg/dL (0.2-1.0) Aspartate Amino Transf (AST/SGOT) 17 U/L (15-37) 15 U/L (15-37) Alanine Aminotransferase (ALT/SGPT) 19 U/L (16-63) 11 U/L (16-63) Alkaline Phosphatase 78 U/L (46-116) 68 U/L (46-116) Troponin I Quantitative 0.035 ng/mL (0.000-0.055) FU-Tix-R-Type Natriuretic Peptide 688 pg/mL (0-449) Total Protein 7.4 g/dL (6.4-8.2) 6.2 g/dL (6.4-8.2) Albumin 3.7 g/dL (3.4-5.0) 3.1 g/dL (3.4-5.0) Albumin/Globulin Ratio 1.0 (1.0-1.7) 1.0 (1.0-1.7) Triglycerides Level 227 mg/dL (0-150) Cholesterol Level 173 mg/dL (0-200) LDL Cholesterol, Calculated 93 mg/dL (0-100) VLDL Cholesterol, Calculated 45 mg/dL (0-40) Non-HDL Cholesterol Calculated 138 mg/dL (0-129) HDL Cholesterol 35 mg/dL (40-60) Cholesterol/HDL Ratio 4.9 Thyroid Stimulating Hormone (TSH) 2.720 uIU/mL (0.358-3.74) Free Thyroxine 1.16 ng/dL (0.76-1.46) Urine Collection Type Unknown Urine Color Yellow Urine Clarity Clear Urine pH 7.0 Urine Specific [place] 1.020 Urine Protein Negative mg/dL (NEG-TRACE) Urine Glucose (UA) Negative mg/dL (NEG) Urine Ketones (Stick) Negative mg/dL (NEG) Urine Blood Negative (NEG) Urine Nitrite Negative (NEG) Urine Bilirubin Negative (NEG) Urine Urobilinogen Dipstick 0.2 mg/dL (0.2 mg/dL) Urine Leukocyte Esterase Negative (NEG) Urine RBC Occ /HPF (0-2) Urine WBC 0 /HPF (0-4) Urine Squamous Epithelial Cells Occ /LPF Urine Bacteria 0 /HPF (0-FEW) Physical Exam HEENT: Neck Supple W Full Motion Chest: Symmetric LUNGS: Clear to Auscultation Heart: S1S2, RRR (AV paced), no murmurs Abdomen: Soft N/T Other Exams left chest incision well approximated with steristrips intact. Minute serosanguinous drain, no swelling or erythema. WOUND CARE COORDINATOR. Neurovascular status to LUE intact with sling in place. Assessment Assessment 1. Symptomatic SSS; S/P St. Long dual chamber. EF and WM nml. No complications. Nml functioning device no changes. 2. STEPHANIE with CPAP 3. ? CKD; Cr 1.4 4. Accelerated HTN: BP controlled without antiHTN Recommendations follow up 2 wk for wound check. HBPM bid encouraged and call if above parameters. Off cardene and if BP remains at high end then [facility] to start Ambulate today, home this afternoon. Post pacer instructions to be given by staff. RAYMOND AMADOR MD 07/18/182106: CARDIO Progress Notes Assessment Assessment Patient seen and examined. Agree with HIGHBALLER's assessment and plan. CXR without pneumothorax. Device interrogation normal. OK for DC. FU for wound check in 2 weeks. SILVIA ESPINOZA APRN Jul 18, 2018 09:20 RAYMOND AMADOR MD Jul 18, 2018 21:07
--- NOTE | 2018-07-18 16:10 | NUR ---
CXR post pacer as well as interrogation completed. Excited to go home but episode of hypertension during night currently discourages potential discharge. Activated to chair then independent activity in room. Cardene off after Norvasc given w pressures 116-120. UPPER CUTTER informed RN to monitor BP and call results after 1200. Able to discharge after reported stable VS. No new meds, printed information/dscharge,follow up appointment. handed to him w reinforcement of ALL....son at bedside at backup follow thru on all the above.
--- NOTE | 2018-07-18 20:58 | PDOC3 ---
Discharge Summary Visit Information Date of Admission: Jul 17, 2018 Date of Discharge: Jul 18, 2018 Admitting Diagnosis: symtpomatic bradycardia Final Diagnosis . Symptomatic SSS; S/P St. Long dual chamber. EF and WM nml. No complications. Nml functioning device no changes. 2. STEPHANIE with CPAP 3. CKD stage 3a; Cr 1.4 4. Hypertnesive urgency resolved. BP controlled without antiHTN Brief Hospital Course Allergies Allergies Coded Allergies Type Severity Reaction Last Updated Verified No Known Drug Allergies 07/17/18 No Vital Signs Vital Signs Date Time Temp Pulse Resp B/P (MAP) Pulse Ox O2 Delivery O2 Flow Rate FiO2 07/18/18 13:00 60 20 116/70 (85) 92 Room Air 07/18/18 12:22 98.0 98.0 07/18/18 08:00 2.0 Lab Results Laboratory Tests Test 07/17/18 11:22 07/17/18 14:02 07/18/18 06:00 07/18/18 06:20 White Blood Count 5.8 x10^3/uL (4.0-11.0) 5.3 x10^3/uL (4.0-11.0) Red Blood Count 4.61 x10^6/uL (4.30-5.70) 4.11 x10^6/uL (4.30-5.70) Hemoglobin 14.8 g/dL (13.0-17.5) 13.1 g/dL (13.0-17.5) Hematocrit 43.9 % (39.0-53.0) 39.3 % (39.0-53.0) Mean Corpuscular Volume 95 fL (79-100) 96 fL (79-100) Mean Corpuscular Hemoglobin 32 pg (25-35) 32 pg (25-35) Mean Corpuscular Hemoglobin Concent 34 g/dL (31-37) 33 g/dL (31-37) Red Cell Distribution Width 13.4 % (11.5-14.5) 13.6 % (11.5-14.5) Platelet Count 207 x10^3/uL (140-400) 172 x10^3/uL (140-400) Neutrophils (%) (Auto) 54 % (31-73) 63 % (31-73) Lymphocytes (%) (Auto) 34 % (24-48) 26 % (24-48) Monocytes (%) (Auto) 7 % (0-9) 6 % (0-9) Eosinophils (%) (Auto) 4 % (0-3) 5 % (0-3) Basophils (%) (Auto) 1 % (0-3) 0 % (0-3) Neutrophils # (Auto) 3.1 x10^3uL (1.8-7.7) 3.4 x10^3uL (1.8-7.7) Lymphocytes # (Auto) 1.9 x10^3/uL (1.0-4.8) 1.4 x10^3/uL (1.0-4.8) Monocytes # (Auto) 0.4 x10^3/uL (0.0-1.1) 0.3 x10^3/uL (0.0-1.1) Eosinophils # (Auto) 0.2 x10^3/uL (0.0-0.7) 0.2 x10^3/uL (0.0-0.7) Basophils # (Auto) 0.0 x10^3/uL (0.0-0.2) 0.0 x10^3/uL (0.0-0.2) Prothrombin Time 13.8 SEC (11.7-14.0) Prothromb Time International Ratio 1.1 (0.8-1.1) Activated Partial Thromboplast Time 22 SEC (24-38) Sodium Level 141 mmol/L (136-145) 146 mmol/L (136-145) Potassium Level 4.6 mmol/L (3.5-5.1) 3.9 mmol/L (3.5-5.1) Chloride Level 104 mmol/L (98-107) 108 mmol/L (98-107) Carbon Dioxide Level 32 mmol/L (21-32) 28 mmol/L (21-32) Anion Gap 5 (6-14) 10 (6-14) Blood Urea Nitrogen 20 mg/dL (8-26) 17 mg/dL (8-26) Creatinine 1.4 mg/dL (0.7-1.3) 1.1 mg/dL (0.7-1.3) Estimated GFR (Cockcroft-Gault) 49.0 64.7 BUN/Creatinine Ratio 14 (6-20) 15 (6-20) Glucose Level 100 mg/dL (70-99) 84 mg/dL (70-99) Calcium Level 9.2 mg/dL (8.5-10.1) 7.7 mg/dL (8.5-10.1) Magnesium Level 2.3 mg/dL (1.8-2.4) Total Bilirubin 0.8 mg/dL (0.2-1.0) 0.6 mg/dL (0.2-1.0) Aspartate Amino Transf (AST/SGOT) 17 U/L (15-37) 15 U/L (15-37) Alanine Aminotransferase (ALT/SGPT) 19 U/L (16-63) 11 U/L (16-63) Alkaline Phosphatase 78 U/L (46-116) 68 U/L (46-116) Troponin I Quantitative 0.035 ng/mL (0.000-0.055) DH-Xyj-I-Type Natriuretic Peptide 688 pg/mL (0-449) Total Protein 7.4 g/dL (6.4-8.2) 6.2 g/dL (6.4-8.2) Albumin 3.7 g/dL (3.4-5.0) 3.1 g/dL (3.4-5.0) Albumin/Globulin Ratio 1.0 (1.0-1.7) 1.0 (1.0-1.7) Triglycerides Level 227 mg/dL (0-150) Cholesterol Level 173 mg/dL (0-200) LDL Cholesterol, Calculated 93 mg/dL (0-100) VLDL Cholesterol, Calculated 45 mg/dL (0-40) Non-HDL Cholesterol Calculated 138 mg/dL (0-129) HDL Cholesterol 35 mg/dL (40-60) Cholesterol/HDL Ratio 4.9 Thyroid Stimulating Hormone (TSH) 2.720 uIU/mL (0.358-3.74) Free Thyroxine 1.16 ng/dL (0.76-1.46) Nasal Screen MRSA (PCR) Negative (Negative) Urine Collection Type Unknown Urine Color Yellow Urine Clarity Clear Urine pH 7.0 Urine Specific [place] 1.020 Urine Protein Negative mg/dL (NEG-TRACE) Urine Glucose (UA) Negative mg/dL (NEG) Urine Ketones (Stick) Negative mg/dL (NEG) Urine Blood Negative (NEG) Urine Nitrite Negative (NEG) Urine Bilirubin Negative (NEG) Urine Urobilinogen Dipstick 0.2 mg/dL (0.2 mg/dL) Urine Leukocyte Esterase Negative (NEG) Urine RBC Occ /HPF (0-2) Urine WBC 0 /HPF (0-4) Urine Squamous Epithelial Cells Occ /LPF Urine Bacteria 0 /HPF (0-FEW) Laboratory Tests Test 07/18/18 06:00 07/18/18 06:20 Urine Collection Type Unknown Urine Color Yellow Urine Clarity Clear Urine pH 7.0 Urine Specific [place] 1.020 Urine Protein Negative mg/dL (NEG-TRACE) Urine Glucose (UA) Negative mg/dL (NEG) Urine Ketones (Stick) Negative mg/dL (NEG) Urine Blood Negative (NEG) Urine Nitrite Negative (NEG) Urine Bilirubin Negative (NEG) Urine Urobilinogen Dipstick 0.2 mg/dL (0.2 mg/dL) Urine Leukocyte Esterase Negative (NEG) Urine RBC Occ /HPF (0-2) Urine WBC 0 /HPF (0-4) Urine Squamous Epithelial Cells Occ /LPF Urine Bacteria 0 /HPF (0-FEW) White Blood Count 5.3 x10^3/uL (4.0-11.0) Red Blood Count 4.11 x10^6/uL (4.30-5.70) Hemoglobin 13.1 g/dL (13.0-17.5) Hematocrit 39.3 % (39.0-53.0) Mean Corpuscular Volume 96 fL (79-100) Mean Corpuscular Hemoglobin 32 pg (25-35) Mean Corpuscular Hemoglobin Concent 33 g/dL (31-37) Red Cell Distribution Width 13.6 % (11.5-14.5) Platelet Count 172 x10^3/uL (140-400) Neutrophils (%) (Auto) 63 % (31-73) Lymphocytes (%) (Auto) 26 % (24-48) Monocytes (%) (Auto) 6 % (0-9) Eosinophils (%) (Auto) 5 % (0-3) Basophils (%) (Auto) 0 % (0-3) Neutrophils # (Auto) 3.4 x10^3uL (1.8-7.7) Lymphocytes # (Auto) 1.4 x10^3/uL (1.0-4.8) Monocytes # (Auto) 0.3 x10^3/uL (0.0-1.1) Eosinophils # (Auto) 0.2 x10^3/uL (0.0-0.7) Basophils # (Auto) 0.0 x10^3/uL (0.0-0.2) Sodium Level 146 mmol/L (136-145) Potassium Level 3.9 mmol/L (3.5-5.1) Chloride Level 108 mmol/L (98-107) Carbon Dioxide Level 28 mmol/L (21-32) Anion Gap 10 (6-14) Blood Urea Nitrogen 17 mg/dL (8-26) Creatinine 1.1 mg/dL (0.7-1.3) Estimated GFR (Cockcroft-Gault) 64.7 BUN/Creatinine Ratio 15 (6-20) Glucose Level 84 mg/dL (70-99) Calcium Level 7.7 mg/dL (8.5-10.1) Total Bilirubin 0.6 mg/dL (0.2-1.0) Aspartate Amino Transf (AST/SGOT) 15 U/L (15-37) Alanine Aminotransferase (ALT/SGPT) 11 U/L (16-63) Alkaline Phosphatase 68 U/L (46-116) Total Protein 6.2 g/dL (6.4-8.2) Albumin 3.1 g/dL (3.4-5.0) Albumin/Globulin Ratio 1.0 (1.0-1.7) Brief Hospital Course Mr. Aguilar is a 78 old male who presented with significant bradycardia and concern for complete heart block. The patient was sent from his primary care physician after he was consulting for some upper respiratory tract symptoms. Patient was seen by cardiology and a permanent pacemaker was placed. He recovered well from the procedure and was in good spirits to be dismissed home. Norvasc was added by her quantitative consultant he was deemed appropriate for discharge from their standpoint of view. Patient will be following up with them in 2 weeks for a recheck of his procedure. Physical exam lungs were clear to auscultation with good inspiratory effort cardiovascular S1-S2 regular rhythm no murmurs gallops or rubs Discharge Information Condition at Discharge: Improved Follow Up: Weeks Disposition/Orders: D/C to Home No Active Prescriptions or Reported Meds FARELA,VALENTIN MD Jul 18, 2018 20:58
== END 2018-07-18 14:20 | disposition home or self-care (01) | DRG 242 ==
LOC: ER 11:43 → 1 WEST ICU 12:00
PROVIDERS: ADMIT Family Medicine; ATTEND Family Medicine
PROC: 0JH606Z Insertion of Pacemaker, Dual Chamber into Chest Subcutaneous Tissue and Fascia, Open Approach (ICD-10-PCS; principal; 2018-07-17)
PROC: 02H63JZ Insertion of Pacemaker Lead into Right Atrium, Percutaneous Approach (ICD-10-PCS; 2018-07-17)
PROC: 02HK3JZ Insertion of Pacemaker Lead into Right Ventricle, Percutaneous Approach (ICD-10-PCS; 2018-07-17)
DX: I49.5 Sick sinus syndrome (principal); N17.0 Acute kidney failure with tubular necrosis; N18.3 Chronic kidney disease, stage 3 (moderate); I12.9 Hypertensive chronic kidney disease with stage 1 through stage 4 chronic kidney disease, or unspecified chronic kidney disease; E66.9 Obesity, unspecified; I16.0 Hypertensive urgency; G47.33 Obstructive sleep apnea (adult) (pediatric); M77.9 Enthesopathy, unspecified; M19.042 Primary osteoarthritis, left hand; M19.041 Primary osteoarthritis, right hand; Z83.3 Family history of diabetes mellitus; Z82.3 Family history of stroke; Z68.35 Body mass index [BMI] 35.0-35.9, adult
CPT/HCPCS: 33208; 36415; 71045; 71046; 73630; 80053; 80061; 81001; 83735; 83880; 84439; 84443; 84484; 85025; 85610; 85730; 87641; 93005; 93306; 99152; 99153; C1785; C1898; J0696; J2250; J3010; J3490; J7030; J7050; 99285-25

== ENCOUNTER → 2018-11-03 | Outpatient (CLI) | payer MEDICARE ==
[2018-07-18 13:00] VITALS: BP 116/70
[~2018-11-03] MED LIST: REGADENOSON 0.4 MG/5 ML DISP.SYRIN. IV ONE
--- NOTE | 2018-11-03 11:56 | RAD ---
MR#: [id number] Date of Study: 11/03/2018 Ordering Physician: RAYMOND AMADOR, Referring Physician: KALA LOPEZ Tech: RT Sourav BowlingR) (N) APPROVED REPORT Test Type: Pharmacological Stress Nurse/Tech: Jennifer Melendez R.N. Test Indications: sick sinus syndrome Cardiac History: Hypertension, PM Medications: See Electronic Medical Record Medical History: See Electronic Medical Record Resting ECG: NSR with LBBB, occ paced Resting Heart Rate: 62 bpm Resting Blood Pressure: 152/59mmHg Pretest Chest Pain: No chest pain Nurse/Tech Notes S1S2, lungs sound clear Consent: The procedure was explained to the patient in lay terms. Informed consent was witnessed. Akbar eout was entered into [employer]. History and Stress Test performed by Jennifer Melendez R.N. Pharm. Details Pharmacologic stress testing was performed using 0.4mg per 5ml of regadenoson given intravenously ove r 7-10 seconds. Stress Symptoms No chest pain or symptoms. POST EXERCISE Reason for Termination: Infusion complete Target HR: 120 Max HR: 81 bpm Max Blood Pressure: 154/50mmHg Blood Pressure response to exercise: Normal blood pressure response during stress. Chest Pain: No. Arrhythmia: No. ST Change: No. INTERPRETATION Stress EKG Conclusion: Non-diagnostic EKG due to baseline LBBB. Imaging Protocol IMAGE PROTOCOL: Rest Tc-99m/stress Tc-99m 1 day Rest: Stress: Viability: Radiopharm.Tc99m PblathinlCv74y Sestamibi Dose10.6mCi 33mCi Duration 13min. 13min. Img Date 11/03/2018 11/03/2018 Inj-Img [id number]. 60min. Rest Admin Site:IV - Right AntecubitalAdministrator:RT Dash (R)(N) Stress Admin Site: IV - Right AntecubitalAdministrator: JAMES Leung STRESS DATA End Diast. Vol.146.0mlLVEDV index BSA62.0ml End Syst. Vol.53.0mlLVESV index BSA22.0ml Myocardial Fcsy010.0gEject. Efkgeycp68.0% Stress Scores Regional WT0.00Summed WT2.00 Regional WM0.00Summed WM5.00 The rest and stress images show normal perfusion, normal contraction and thickening. LV Perf. Quant 17 Seg. SSS1.00 17 Seg. SRS2.00 17 Seg. SDS0.00 Stress Defect Extent (% LAD)0.00Rest Defect Extent (% LAD)3.10Rev. Defect Extent (% LAD)0.00 Stress Defect Extent (% LCX) 1.30Rest Defect Extent (% LCX)7.50Rev. Defect Extent (% LCX)1.30 Stress Defect Extent (% RCA)0.00Rest Defect Extent (% RCA)0.00Rev. Defect Extent (% RCA)0.00 Stress Defect Extent (% YOMI)0.20Rest Defect Extent (% YOMI)5.70Rev. Defect Extent (% YOMI)0.20 Other Information Quality:Good Risk Assessment: Low Risk Conclusion 1. Non-diagnostic EKG due to LBBB. 2. Normal perfusion at stress/rest. 3. Low risk study. 4. EF > 60%. Signed by : Herrera Carrero, Electronically Approved : 11/03/2018 11:55:34
== END | disposition home or self-care (01) ==
LOC: NM 14:18
PROVIDERS: ATTEND Internal Medicine Cardiovascular Disease
DX: I49.5 Sick sinus syndrome (principal); I10 Essential (primary) hypertension
CPT/HCPCS: 78452; 93017; A9500; J2785

== ENCOUNTER 2019-03-12 18:29 | Inpatient (IN) | payer MEDICARE ==
[~2019-03-12] VITALS: Ht 182.9 cm; Wt 111.1 kg
[2019-03-12 18:59] LABS: BASO % 0 % (0-3); EOS % 0 % (0-3); HEMATOCRIT 45.3 % (39.0-53.0); HEMOGLOBIN 15.4 g/dL (13.0-17.5); LYMPH # 0.7 x10^3/uL (1.0-4.8); LYMPH % 5 % (24-48); MEAN CORPUSCULAR HEMOGLOBIN 33 pg (25-35); MEAN CORPUSCULAR HGB CONC 34 g/dL (31-37); MEAN CORPUSCULAR VOLUME 96 fL (79-100); MONO # 0.5 x10^3/uL (0.0-1.1); MONO % 3 % (0-9); NEUT # 13.8 x10^3/uL (1.8-7.7); NEUT % 92 % (31-73); PLATELET COUNT 321 x10^3/uL (140-400); RED BLOOD COUNT 4.73 x10^6/uL (4.30-5.70); RED CELL DISTRIBUTION WIDTH 13.1 % (11.5-14.5)
[2019-03-12] MEDS ORDERED: hydrALAZINE 20 MG/ML VIAL. IVP ONE ×2 (19:00→20:30)
[2019-03-12 19:13] LABS: CALCIUM 9.8 mg/dL (8.5-10.1); CREATININE 1.4 mg/dL (0.7-1.3); POTASSIUM 3.7 mmol/L (3.5-5.1)
[2019-03-12 19:17] LABS: PROTHROMBIN TIME PATIENT 13.2 SEC (11.7-14.0)
[2019-03-12 19:18] LABS: ALBUMIN 4.4 g/dL (3.4-5.0); TOTAL BILIRUBIN 0.7 mg/dL (0.2-1.0); TOTAL PROTEIN 8.6 g/dL (6.4-8.2)
[2019-03-12 19:29] LABS: % BANDS 1 % (0-9); % LYMPHS 6 % (24-48); % MONOS 3 % (0-10); % SEGS 90 % (35-66); PLT ESTIMATE ADEQUATE (ADEQUATE); POLYCHROMASIA SLIGHT
[2019-03-12 19:30] LABS: ANISOCYTOSIS SLIGHT; TOXIC GRANULATION SLIGHT
[2019-03-12] MEDS ORDERED: FUROSEMIDE 40 MG/4 ML VIAL. IVP ONE (22:00)
[2019-03-12] MEDS ORDERED: LABETALOL 20 MG/4 ML DISP.SYRIN. IVP ONE ×3 (22:00→23:15)
--- NOTE | 2019-03-12 23:05 | RAD ---
PROCEDURE: PORTABLE CHEST 1V CLINICAL INDICATION: Chest pain. COMPARISON: None FINDINGS: Left chest wall cardiac pacer with its leads projecting over the heart. No pneumothorax identified. Cardiac and mediastinal contours unremarkable. No pulmonary consolidation or acute airspace disease. No acute osseous abnormalities identified. IMPRESSION: No pulmonary consolidation or acute airspace disease. Electronically signed by: Jovi Galan DO (03/12/2019 11:02 PM) [facility]
[2019-03-13] VITALS (8 sets, daily range): BP systolic 133–184; BP diastolic 58–87
[2019-03-13] MEDS ORDERED: LABETALOL 20 MG/4 ML DISP.SYRIN. IVP PRN ×2 (01:00→15:00)
--- NOTE | 2019-03-13 01:13 | PHYS DOC ---
Past Medical History Past Medical History: Arrhythmia, Hypertension Past Surgical History: Pacemaker, Other Additional Past Surgical Histo: hemorrhoids Alcohol Use: Occasionally Drug Use: None Adult General Chief Complaint Chief Complaint: HYPERTENSION HPI HPI Patient is a 78 year old male who presents to the due to chief complaint of high blood pressure. Patient states that he has not missed any of his home blood pressure medication. Patient is seen at earlier this year he had a pacemaker pl aced secondary to complete heart block. Patient states that tonight he checks his blood pressure was very high and he called his family who brought patient into the ED. Patient denies chest pain, shortness of breath. Review of Systems Review of Systems Constitutional: Denies fever or chills [] Eyes: Denies change in visual acuity, redness, or eye pain [] HENT: Denies nasal congestion or sore throat [] Respiratory: Denies cough or shortness of breath [] Cardiovascular: No additional information not addressed in HPI [] GI: Denies abdominal pain, nausea, vomiting, bloody stools or diarrhea [] : Denies dysuria or hematuria [] Musculoskeletal: Denies back pain or joint pain [] Integument: Denies rash or skin lesions [] Neurologic: Denies headache, focal weakness or sensory changes [] All other systems were reviewed and found to be within normal limits, except as documented in this note. Current Medications Current Medications Current Medications Medications (Trade) Dose Ordered Sig/Clifton Start Time Stop Time Status Last Admin Dose Admin Furosemide (Lasix) 40 mg 1X ONCE 03/12/19 22:00 03/12/19 22:01 DC 03/12/19 22:17 40 MG Hydralazine HCl (Apresoline Inj) 10 mg 1X ONCE 03/12/19 20:30 03/12/19 20:31 DC 03/12/19 20:20 10 MG Labetalol HCl (Normodyne Iv Push) 10 mg 1X ONCE 03/12/19 22:00 03/12/19 22:01 DC 03/12/19 22:18 10 MG Allergies Allergies Allergies Coded Allergies Type Severity Reaction Last Updated Verified No Known Drug Allergies 07/17/18 No Physical Exam Physical Exam Constitutional: Well developed, well nourished, no acute distress, non-toxic appearance. [] HENT: Normocephalic, atraumati Eyes: PERRLA, EOMI, conjunctiva normal, no discharge. [] Neck: Normal range of motion, no tenderness, supple, no stridor. [] Cardiovascular:Heart rate regular rhythm, no murmur [] Lungs & Thorax: Bilateral breath sounds clear to auscultation [] Abdomen: Bowel sounds normal, soft, no tenderness Skin: Warm, dry, no erythema, no rash. [] Extremities: No tenderness, no cyanosis, no clubbing, ROM intact, no edema. [] Neurologic: Alert and oriented X 3, normal motor function, normal sensory function, no focal deficits noted. [] Psychologic: Affect normal, judgement normal, mood normal. [] Current Patient Data Vital Signs Vital Signs Date Time Temp Pulse Resp B/P (MAP) Pulse Ox O2 Delivery O2 Flow Rate FiO2 03/12/19 22:18 75 206/93 03/12/19 18:35 98.5 20 98 Room Air 98.5 Lab Values Laboratory Tests Test 03/12/19 18:40 White Blood Count 15.0 x10^3/uL (4.0-11.0) H Red Blood Count 4.73 x10^6/uL (4.30-5.70) Hemoglobin 15.4 g/dL (13.0-17.5) Hematocrit 45.3 % (39.0-53.0) Mean Corpuscular Volume 96 fL (79-100) Mean Corpuscular Hemoglobin 33 pg (25-35) Mean Corpuscular Hemoglobin Concent 34 g/dL (31-37) Red Cell Distribution Width 13.1 % (11.5-14.5) Platelet Count 321 x10^3/uL (140-400) Neutrophils (%) (Auto) 92 % (31-73) H Lymphocytes (%) (Auto) 5 % (24-48) L Monocytes (%) (Auto) 3 % (0-9) Eosinophils (%) (Auto) 0 % (0-3) Basophils (%) (Auto) 0 % (0-3) Neutrophils # (Auto) 13.8 x10^3/uL (1.8-7.7) H Lymphocytes # (Auto) 0.7 x10^3/uL (1.0-4.8) L Monocytes # (Auto) 0.5 x10^3/uL (0.0-1.1) Eosinophils # (Auto) 0.0 x10^3/uL (0.0-0.7) Basophils # (Auto) 0.0 x10^3/uL (0.0-0.2) Segmented Neutrophils % 90 % (35-66) H Band Neutrophils % 1 % (0-9) Lymphocytes % 6 % (24-48) L Monocytes % 3 % (0-10) Toxic Granulation Slight Platelet Estimate Adequate (ADEQUATE) Polychromasia Slight Anisocytosis Slight Prothrombin Time 13.2 SEC (11.7-14.0) Prothrombin Time INR 1.0 (0.8-1.1) Sodium Level 142 mmol/L (136-145) Potassium Level 3.7 mmol/L (3.5-5.1) Chloride Level 103 mmol/L (98-107) Carbon Dioxide Level 26 mmol/L (21-32) Anion Gap 13 (6-14) Blood Urea Nitrogen 18 mg/dL (8-26) Creatinine 1.4 mg/dL (0.7-1.3) H Estimated GFR (Cockcroft-Gault) 49.0 BUN/Creatinine Ratio 13 (6-20) Glucose Level 205 mg/dL (70-99) H Calcium Level 9.8 mg/dL (8.5-10.1) Total Bilirubin 0.7 mg/dL (0.2-1.0) Aspartate Amino Transferase (AST) 23 U/L (15-37) Alanine Aminotransferase (ALT) 21 U/L (16-63) Alkaline Phosphatase 95 U/L (46-116) Troponin I Quantitative < 0.017 ng/mL (0.000-0.055) GE-Czj-R-Type Natriuretic Peptide 188 pg/mL (0-449) Total Protein 8.6 g/dL (6.4-8.2) H Albumin 4.4 g/dL (3.4-5.0) Albumin/Globulin Ratio 1.0 (1.0-1.7) Laboratory Tests 03/12/19 18:40 Laboratory Tests 03/12/19 18:40 EKG EKG EKG interpretation: HR: 75 Atrial fibrillation Irregular intervals Left axis deviation Nonspecific ST changes Radiology/Procedures Radiology/Procedures Ordered chest x-ray Impressions: Chest x-ray shows no acute disease. mild elevated pulmonary vasculature seen. Course & Med Decision Making Course & Med Decision Making Pertinent Labs and Imaging studies reviewed. (See chart for details) Patient's initial blood pressure was 220/110. Patient denied chest pain, shortness of breath. Patient does have a pacemaker in place secondary to complete heart block. EKG shows no acute changes. Labs are within normal limits. Troponin is negative. Chest x-ray shows no acute disease. Mild pulmonary vascular congestion seen. Patient is given 10 mg IV hydralazine. Patient is given another 10 mg IV hydralazine. Patient's blood pressure is still elevated and so I ordered labetalol 10 mg IV. The dose of labetalol 10 mg IV is given. Patient was also given Lasix 40 mg IV. Family stated that patient's face is puffed up compared to usual. Patient's blood pressure is currently 168/70. Patient will be admitted for hypertensive urgency. Dragon Disclaimer Dragon Disclaimer This electronic medical record was generated, in whole or in part, using a voice recognition dictation system. Departure Departure Referrals: BHAKTI BERMUDEZ NP (PCP) Scripts No Active Prescriptions or Reported Meds ALEJANDRO HERNANDEZ DO Mar 13, 2019 01:13
[2019-03-13] MEDS ORDERED: FISH1CAP PO (02:53)
[2019-03-13] MEDS ORDERED: FLAX1CAP PO (02:53)
[2019-03-13] MEDS ORDERED: ASPI-39 PO (02:53)
[2019-03-13] MEDS ORDERED: GARL10002 PO (02:53)
[2019-03-13] MEDS ORDERED: CHOL500016 PO (02:53)
[2019-03-13] MEDS ORDERED: MULT1TAB52 PO (02:53)
[2019-03-13] MEDS ORDERED: CALC600T4 PO (02:53)
[2019-03-13] MEDS ORDERED: GLUC100018 PO (02:53)
--- NOTE | 2019-03-13 06:16 | EKG ---
[facility] [address] [place] [address] Test Date: 2019-03-12 Test Time: 18:53:57 Pat Name: MELISSA MIJARES Department: Room: Gender: M Director Trade: : 1940 Requested By: ALEJANDRO HERNANDEZ Order Number: [id number] Reading MD: Measurements Intervals [place] Rate: 75 P: KS: QRS: -53 QRSD: 134 T: 64 QT: 390 QTc: 438 Interpretive Statements ATRIAL FIBRILLATION ABNORMAL LEFT AXIS DEVIATION NON SPECIFIC INTRAVENTRICULAR BLOCK QRS(T) CONTOUR ABNORMALITY CONSIDER ANTEROSEPTAL MYOCARDIAL DAMAGE ABNORMAL ECG No previous ECG available for comparison
[2019-03-13] MEDS ORDERED: LOSA100T14 PO (07:32)
[2019-03-13] MEDS ORDERED: AMLO5TAB10 PO (07:32)
--- NOTE | 2019-03-13 10:03 | PDOC2 ---
SILVIA ESPINOZA HERB GROWER 03/13/19 1003: CARDIAC CONSULT DATE OF CONSULT Date of Consult DATE: 03/13/19 TIME: 09:52 REASON FOR CONSULT Reason for Consult: HTN urgency REFERRING PHYSICIAN Referring Physician: Gilles SOURCE Source: Chart review, Patient HISTORY OF PRESENT ILLNESS HISTORY OF PRESENT ILLNESS This is a pleasant 78 yo male admitted for complains of high BP. His SBP was checked at home and it was in the 220s. Reports that he was not feeling good yesterday and at times becomes sweaty. No chest pain, SOA, palpitations. No nausea or vomiting but has been constipated with no BM in the last 5 days. He is forgetful and lives alone. His daughter oversees his meds and care. No recent falls or any injuries. PAST MEDICAL HISTORY Past Medical History Cardiovascular: SSS, HTN Pulmonary: Other (STEPHANIE with CPAP) CENTRAL NERVOUS SYSTEM: Other (no pertinent hx) GI: No pertinent hx Heme/Onc: No pertinent hx Hepatobiliary: No pertinent hx Psych: No pertinent hx Musculoskeletal: Osteoarthritis Rheumatologic: No pertinent hx Infectious disease: No pertinent hx ENT: No pertinent hx Renal/: BPH, CKD3 Endocrine: No pertinent hx Dermatology: No pertinent hx PAST SURGICAL HISTORY Past Surgical History: Pacemaker FAMILY HISTORY Family History: Diabetes, Heart Disease SOCIAL HISTORY Smoke: No ALCOHOL: none Drugs: None Lives: Alone CURRENT MEDICATIONS CURRENT MEDICATIONS Current Medications Medications (Trade) Dose Ordered Sig/Clifton Route PRN Reason Start Time Stop Time Status Last Admin Dose Admin Hydralazine HCl (Apresoline Inj) 10 mg 1X ONCE IVP 03/12/19 19:00 03/12/19 19:01 DC 03/12/19 19:06 Hydralazine HCl (Apresoline Inj) 10 mg 1X ONCE IVP 03/12/19 20:30 03/12/19 20:31 DC 03/12/19 20:20 Furosemide (Lasix) 40 mg 1X ONCE IVP 03/12/19 22:00 03/12/19 22:01 DC 03/12/19 22:17 Labetalol HCl (Normodyne Iv Push) 10 mg 1X ONCE IVP 03/12/19 22:00 03/12/19 22:01 DC 03/12/19 22:18 Labetalol HCl (Normodyne Iv Push) 10 mg 1X ONCE IVP 03/12/19 23:15 03/12/19 23:16 DC 03/12/19 23:26 Labetalol HCl (Normodyne Iv Push) 5 mg PRN Q2HR PRN IVP HYPERTENSION 03/13/19 01:00 03/13/19 08:34 ALLERGIES ALLERGIES: Coded Allergies: No Known Drug Allergies (Unverified , 07/17/18) ROS Review of System 14 point ROS evaluated with pertinent positives noted per HPI PHYSICAL EXAM General: Alert, Oriented X3, Cooperative, No acute distress HEENT: Atraumatic, Mucous membr. moist/pink Lungs: Clear to auscultation, Normal air movement Heart: Regular rate (SRno ectopies), Normal S1, Normal S2, No murmurs Abdomen: Soft, No tenderness Extremities: No cyanosis, No edema Skin: No breakdown, No significant lesion Neuro: Normal speech, Sensation intact Psych/Mental Status: Mental status NL, Mood NL MUSCULOSKELETAL: Osteoarthritic changes both hands VITALS/I&O VITALS/I&O: Vital Signs Date Time Temp Pulse Resp B/P (MAP) Pulse Ox O2 Delivery O2 Flow Rate FiO2 03/13/19 08:34 80 168/71 03/13/19 07:56 Room Air 03/13/19 07:00 99.4 18 90 99.4 I & O 03/12/19 03/12/19 03/13/19 15:00 23:00 07:00 Intake Total 0 ml Balance 0 ml LABS Lab: Laboratory Tests Test 03/12/19 18:40 White Blood Count 15.0 x10^3/uL (4.0-11.0) H Red Blood Count 4.73 x10^6/uL (4.30-5.70) Hemoglobin 15.4 g/dL (13.0-17.5) Hematocrit 45.3 % (39.0-53.0) Mean Corpuscular Volume 96 fL (79-100) Mean Corpuscular Hemoglobin 33 pg (25-35) Mean Corpuscular Hemoglobin Concent 34 g/dL (31-37) Red Cell Distribution Width 13.1 % (11.5-14.5) Platelet Count 321 x10^3/uL (140-400) Neutrophils (%) (Auto) 92 % (31-73) H Lymphocytes (%) (Auto) 5 % (24-48) L Monocytes (%) (Auto) 3 % (0-9) Eosinophils (%) (Auto) 0 % (0-3) Basophils (%) (Auto) 0 % (0-3) Neutrophils # (Auto) 13.8 x10^3/uL (1.8-7.7) H Lymphocytes # (Auto) 0.7 x10^3/uL (1.0-4.8) L Monocytes # (Auto) 0.5 x10^3/uL (0.0-1.1) Eosinophils # (Auto) 0.0 x10^3/uL (0.0-0.7) Basophils # (Auto) 0.0 x10^3/uL (0.0-0.2) Segmented Neutrophils % 90 % (35-66) H Band Neutrophils % 1 % (0-9) Lymphocytes % 6 % (24-48) L Monocytes % 3 % (0-10) Toxic Granulation Slight Platelet Estimate Adequate (ADEQUATE) Polychromasia Slight Anisocytosis Slight Prothrombin Time 13.2 SEC (11.7-14.0) Prothrombin Time INR 1.0 (0.8-1.1) Sodium Level 142 mmol/L (136-145) Potassium Level 3.7 mmol/L (3.5-5.1) Chloride Level 103 mmol/L (98-107) Carbon Dioxide Level 26 mmol/L (21-32) Anion Gap 13 (6-14) Blood Urea Nitrogen 18 mg/dL (8-26) Creatinine 1.4 mg/dL (0.7-1.3) H Estimated GFR (Cockcroft-Gault) 49.0 BUN/Creatinine Ratio 13 (6-20) Glucose Level 205 mg/dL (70-99) H Calcium Level 9.8 mg/dL (8.5-10.1) Total Bilirubin 0.7 mg/dL (0.2-1.0) Aspartate Amino Transferase (AST) 23 U/L (15-37) Alanine Aminotransferase (ALT) 21 U/L (16-63) Alkaline Phosphatase 95 U/L (46-116) Troponin I Quantitative < 0.017 ng/mL (0.000-0.055) QR-Liu-F-Type Natriuretic Peptide 188 pg/mL (0-449) Total Protein 8.6 g/dL (6.4-8.2) H Albumin 4.4 g/dL (3.4-5.0) Albumin/Globulin Ratio 1.0 (1.0-1.7) Laboratory Tests 03/12/19 18:40 Laboratory Tests 03/12/19 18:40 ECHOCARDIOGRAM ECHOCARDIOGRAM <Conclusion> The left ventricular systolic function is normal. The Ejection Fraction is 60%. There is normal LV segmental wall motion. The left atrium is moderately dilated. Mild aortic regurgitation. Trace mitral regurgitation. Trace to mild tricuspid regurgitation. There is no evidence of significant pericardial effusion. DATE: 07/17/18 1451 STRESS TEST STRESS TEST Conclusion 1. Non-diagnostic EKG due to LBBB. 2. Normal perfusion at stress/rest. 3. Low risk study. 4. EF > 60%. DATE: 11/03/18 1155 ASSESSMENT/PLAN ASSESSMENT/PLAN 1. Accelerated HTN: on losartan only. Likely due to inadequate coverage. 2. PPM in situ: for SSS. [facility]. recent device check 02/01/2019 <1% burden 30% vpaced normal impedances. no ectopies 3. STEPHANIE: CPAP compliant 4. CKD3 5. Constipation: per PCP ] Recommendations 1. Resume losartan and will add norvasc. 2. TSH, lipids 3. Dietitian consult for DASH diet. 4. Anticipate DC this evening if BP is better controlled. 5. Discussed with pt and daughter HBPM bid for 1 week and to call if BP remains outside parameters. RAYMOND AMADOR MD 03/13/19 1627: CARDIAC CONSULT ASSESSMENT/PLAN ASSESSMENT/PLAN Patient seen and examined. Agree with CUSTOM STUDIO COORDINATOR's assessment and plan. Agree with adding Norvasc for better blood pressure control. Recent permanent pacemaker check showed normal function with adequate battery life. Thank you for your consultation SILVIA ESPINOZA APRN Mar 13, 2019 10:03 RAYMOND AMADOR MD Mar 13, 2019 16:27
[2019-03-13] MEDS: POLYETHYLENE GLYCOL 3350 17 GM PACKET. PO SCH (10:34)
[2019-03-13 10:44] LABS: CHOLESTEROL/HDL RATIO 4.6
[2019-03-13] MEDS ORDERED: amLODIPine BESYLATE 5 MG TABLET PO SCH (11:00)
--- NOTE | 2019-03-13 11:14 | SSS ---
ADMIT DATE: 03/13/2019 CHIEF COMPLAINT: Hypertension. HISTORY OF PRESENT ILLNESS: The patient is a pleasant 78-year-old male who is on blood pressure meds, but presented with blood pressures in the 200s, has associated weakness, has been occurring for a couple of days. I have discussed the case with ER physician. We admitted the patient. We are going to consult Cardiology. It should be noted that his blood pressure was as high as 224/99. I have now got it down to 168/71. I plan to discharge this afternoon if okay with Cardiology. PAST MEDICAL HISTORY: Hypertension, arrhythmias, pacemaker, hemorrhoids. ALLERGIES: None. FAMILY HISTORY: Coronary artery disease. SOCIAL HISTORY: He does not drink, smoke or take drugs. He is . MEDICATIONS: Reviewed, please refer to the MRAD. REVIEW OF SYSTEMS: GENERAL: No history of weight change, weakness or fevers. SKIN: No bruising, hair changes or rashes. EYES: No blurred, double or loss of vision. NOSE AND THROAT: No history of nosebleeds, hoarseness or sore throat. HEART: No history of palpitations, chest pain or shortness of breath on exertion. LUNGS: Denies cough, hemoptysis, wheezing or shortness of breath. GASTROINTESTINAL: Denies changes in appetite, nausea, vomiting, diarrhea or constipation. GENITOURINARY: No history of frequency, urgency, hesitancy or nocturia. NEUROLOGIC: Denies history of numbness, tingling, tremor or weakness. PSYCHIATRIC: No history of panic, anxiety or depression. ENDOCRINE: No history of heat or cold intolerance, polyuria or polydipsia. EXTREMITIES: Denies muscle weakness, joint pain, pain on walking or stiffness. PHYSICAL EXAMINATION: VITALS: His pressure is down to 160/71 GENERAL: No apparent distress. Alert and oriented. HEENT: Head is normocephalic, atraumatic, pupils were equally round and reactive to light and accommodation. NECK: Supple, no JVD, no thyromegaly was noted. LUNGS: Clear to auscultation in all lung traore without rhonchi or wheezing. HEART: RRR, S1, S2 present. Peripheral pulses intact, no obvious murmurs were noted. ABDOMEN: Soft, nontender. Positive bowel sounds no organomegaly, normal bowel sounds. EXTREMITIES: Without any cyanosis, clubbing, or edema. Pedal pulses intact, Homans sign is negative. NEUROLOGIC: Normal speech, normal tone. A and O x 3, moves all extremities, no obvious focal deficits. PSYCHIATRIC: Normal affect, normal mood. Stable. SKIN: No ulcerations or rashes, good skin turgor, no jaundice. VASCULAR: Good capillary refill, neurovascular bundle appears to be intact. ASSESSMENT AND PLAN: Resolving hypertensive urgency. I put discharge orders if okay with Cardiology. I did leave prescriptions for Norvasc, Lasix, and Lipitor and we will continue his home meds. Total time 32 minutes. BRIDGER VALLES DO DR: ORTIZ/zahra JOB#: [id number] / [id number]
[2019-03-13] MEDS ORDERED: FUROSEMIDE 20 MG TABLET PO SCH (11:30)
[2019-03-13] MEDS: amLODIPine BESYLATE 10 MG TABLET PO SCH (12:12)
[2019-03-13] MEDS: LOSARTAN POTASSIUM 50 MG TABLET. PO SCH (12:12)
[2019-03-13] MEDS ORDERED: ATOR20TA PO (12:28)
[2019-03-13] MEDS ORDERED: AMLO10TA8 PO (12:28)
[2019-03-13 12:51] LABS: BILIRUBIN,URINE NEGATIVE (NEG); CLARITY,URINE CLEAR; COLOR,URINE YELLOW; NITRITE,URINE NEGATIVE (NEG); PH,URINE 5.5; PROTEIN,URINE 100 mg/dL (NEG-TRACE); UROBILINOGEN,URINE 0.2 mg/dL (0.2 mg/dL)
[2019-03-13 13:03] LABS: HYALINE CASTS, URINE FEW /HPF; SQUAMOUS EPITHELIAL CELL,UR FEW /LPF
[2019-03-13 13:07] LABS: BACTERIA,URINE FEW /HPF (0-FEW)
[2019-03-13] MEDS ORDERED: MAGNESIUM CITRATE 296 ML SOLUTION. PO ONE (13:30)
--- NOTE | 2019-03-13 20:17 | NUR ---
not charted by dayshift Addendum: 03/14/19 at 0035 by MALOU MONROY RN Amended: Links added.
[2019-03-13] MEDS ORDERED: ASPIRIN CHEWABLE 81 MG TABLET. PO SCH (21:00)
[2019-03-13] MEDS ORDERED: METOPROLOL TART IMMED RELEASE 50 MG TABLET. PO SCH (21:00)
[2019-03-13] MEDS ORDERED: ATORVASTATIN CALCIUM 20 MG TABLET PO SCH (21:00)
[2019-03-14 03:33] VITALS: BP 125/52
[2019-03-14 07:46] VITALS: BP 118/44
[2019-03-14] MEDS: LOSARTAN POTASSIUM 50 MG TABLET. PO SCH (08:51)
[2019-03-14] MEDS: amLODIPine BESYLATE 10 MG TABLET PO SCH (08:52)
[2019-03-14] MEDS: POLYETHYLENE GLYCOL 3350 17 GM PACKET. PO SCH (08:53)
[2019-03-14] MEDS ORDERED: amLODIPine BESYLATE 10 MG TABLET PO SCH (09:00)
--- NOTE | 2019-03-14 09:57 | RAD ---
MR#: [id number] Date of Study: 03/13/2019 Ordering Physician: SILVIA ESPINOZA, Referring Physician: SILVIA ESPINOZA, Tech: Lucinda Chacko RT R, CT RDMS AB, T APPROVED REPORT Patient Location: IN-PATIENT Indications Uncontrolled HTN Renal Artery Doppler Right Renal Artery Left Renal Arter y Proximal Proximal 149.0/39.0 cm/sec Mid 211.0/68.0 cm/secMid 83.0/32.0 cm/sec Distal 81.0/27.0 cm/secDistal 115.0/29.0 cm/sec Renal/Aorta Ratio 1.70Renal/Aorta Ratio 1.20 Prox. Resistive Index Prox. Resistive Index 0.70 Mid Resistive Index 0.60Mid Resistive Index 0.60 Distal Resistive Index 0.60Distal Resistive Index 0.70 Renal Measurements RightLeft Kidney Ghileb79.4 cm cmKidney Ivjsnk47.3 cm cm Right Additional FindingsLeft Additional Findings Aortic Doppler VelocityWaveform Proximal Aorta 119.0 cm/sec Findings Grayscale images of the bilateral kidneys are grossly unremarkable. Spectral waveforms and color Doppler of the mid and distal renal arteries do not reveal any obvious e vidence of significant stenosis. On the right the proximal renal artery is not well visualized. Overall renal to aortic ratios are within normal limits without any significant obstructive disease. Critical Notification Critical Value: No <Conclusion> No significant renal artery stenosis. Signed by : Herrera Carrero, Electronically Approved : 03/14/2019 09:57:05
[2019-03-14] MEDS ORDERED: POLYETHYLENE GLYCOL 3350 17 GM PACKET. PO SCH (10:00)
[2019-03-14 11:27] VITALS: BP 159/66
--- NOTE | 2019-03-14 11:29 | PDOC ---
[employer] PROGRESS NOTE Vitals/I&O Vitals/I&O: Vital Signs Date Time Temp Pulse Resp B/P (MAP) Pulse Ox O2 Delivery O2 Flow Rate FiO2 03/14/19 11:27 98.7 77 20 159/66 (97) 92 Room Air 98.7 I & O 03/13/19 03/13/19 03/14/19 15:00 23:00 07:00 Intake Total 200 ml 600 ml Output Total 300 ml Balance 200 ml -300 ml 600 ml Physical Exam General: Alert, Oriented X3, Cooperative, No acute distress Heart: Regular rate (SRno ectopies), Normal S1, Normal S2, No murmurs Abdomen: Soft, No tenderness Extremities: No cyanosis, No edema Skin: No breakdown, No significant lesion Labs Labs: Laboratory Tests Test 03/13/19 12:40 Urine Collection Type Unknown Urine Color Yellow Urine Clarity Clear Urine pH 5.5 Urine Specific [place] 1.025 Urine Protein 100 mg/dL (NEG-TRACE) Urine Glucose (UA) Negative mg/dL (NEG) Urine Ketones (Stick) Negative mg/dL (NEG) Urine Blood Trace (NEG) Urine Nitrite Negative (NEG) Urine Bilirubin Negative (NEG) Urine Urobilinogen Dipstick 0.2 mg/dL (0.2 mg/dL) Urine Leukocyte Esterase Negative (NEG) Urine RBC 1-2 /HPF (0-2) Urine WBC 1-4 /HPF (0-4) Urine Squamous Epithelial Cells Few /LPF Urine Bacteria Few /HPF (0-FEW) Urine Hyaline Casts Few /HPF Urine Mucus Marked /LPF Comment Review of Relevant I have reviewed the following items zenobia (where applicable) has been applied. Medications: Current Medications Medications (Trade) Dose Ordered Sig/Clifton Route PRN Reason Start Time Stop Time Status Last Admin Dose Admin Aspirin (Children'S Aspirin) 81 mg HS PO 03/13/19 21:00 03/13/19 21:42 Losartan Potassium (Cozaar) 100 mg DAILY PO 03/13/19 11:30 03/14/19 08:51 Amlodipine Besylate (Norvasc) 10 mg DAILY PO 03/13/19 12:00 03/14/19 08:52 Atorvastatin Calcium (Lipitor) 20 mg QHS PO 03/13/19 21:00 03/13/19 21:42 Magnesium Citrate (Citroma) 296 ml 1X ONCE PO 03/13/19 13:30 03/13/19 13:31 DC 03/13/19 13:35 Labetalol HCl (Normodyne Iv Push) 20 mg PRN Q2HR PRN IVP HYPERTENSION 03/13/19 15:00 03/13/19 15:45 BRIDGER VALLES III DO Mar 14, 2019 11:29
--- NOTE | 2019-03-14 11:41 | PDOC ---
[facility] [facility] PROGRESS NOTE Chief Complaint Chief Complaint Hypertensive urgency Constipation History of Present Illness History of Present Illness 03/14/2019 Pt was seen and examined. Reports that he feels better today and that his pressure is "good" today. Reports cardiology came to see him and took him off his lasix. Complains of constipation, reports that magnesium citrate he was prescribed made him pass gas but he hasn't had a bowel movement since admission. Additionally to combat the constipation he reports taking some prunes this morning but report he is still constipated. Vitals/I&O Vitals/I&O: Vital Signs Date Time Temp Pulse Resp B/P (MAP) Pulse Ox O2 Delivery O2 Flow Rate FiO2 03/14/19 11:27 98.7 77 20 159/66 (97) 92 Room Air 98.7 I & O 03/13/19 03/13/19 03/14/19 15:00 23:00 07:00 Intake Total 200 ml 600 ml Output Total 300 ml Balance 200 ml -300 ml 600 ml Physical Exam General: Alert, Oriented X3, Cooperative, No acute distress Heart: Regular rate (SRno ectopies), Normal S1, Normal S2, No murmurs Lungs: Clear Abdomen: Soft, No tenderness Extremities: No cyanosis, No edema Skin: No breakdown, No significant lesion Labs Labs: Laboratory Tests Test 03/13/19 12:40 Urine Collection Type Unknown Urine Color Yellow Urine Clarity Clear Urine pH 5.5 Urine Specific [place] 1.025 Urine Protein 100 mg/dL (NEG-TRACE) Urine Glucose (UA) Negative mg/dL (NEG) Urine Ketones (Stick) Negative mg/dL (NEG) Urine Blood Trace (NEG) Urine Nitrite Negative (NEG) Urine Bilirubin Negative (NEG) Urine Urobilinogen Dipstick 0.2 mg/dL (0.2 mg/dL) Urine Leukocyte Esterase Negative (NEG) Urine RBC 1-2 /HPF (0-2) Urine WBC 1-4 /HPF (0-4) Urine Squamous Epithelial Cells Few /LPF Urine Bacteria Few /HPF (0-FEW) Urine Hyaline Casts Few /HPF Urine Mucus Marked /LPF Review of Systems Review of Systems: Denies CP. Denies SOB. Denies N/V, admits constipation. Assessment and Plan Assessmemt and Plan Hypertensive Urgency Constipation Plan: 1) possible D/C today if cardiology is ok with it. 2) Advised patient stay hydrated and ensure adequate fiber intake upon discharge 3) gave pt a prescription of losartan, amlodipine, and atorvastatin 4) Full Code 5) DVT prophylaxis 6) PT/OT 7) Continual labs if not discharged today Comment Review of Relevant I have reviewed the following items zenobia (where applicable) has been applied. Medications: Current Medications Medications (Trade) Dose Ordered Sig/[place] Route PRN Reason Start Time Stop Time Status Last Admin Dose Admin Aspirin (Children'S Aspirin) 81 mg HS PO 03/13/19 21:00 03/13/19 21:42 Amlodipine Besylate (Norvasc) 10 mg DAILY PO 03/13/19 12:00 03/14/19 08:52 Atorvastatin Calcium (Lipitor) 20 mg QHS PO 03/13/19 21:00 03/13/19 21:42 Magnesium Citrate (Citroma) 296 ml 1X ONCE PO 03/13/19 13:30 03/13/19 13:31 DC 03/13/19 13:35 Labetalol HCl (Normodyne Iv Push) 20 mg PRN Q2HR PRN IVP HYPERTENSION 03/13/19 15:00 03/13/19 15:45 BRIDGER VALLES III DO Mar 14, 2019 11:41
--- NOTE | 2019-03-14 12:37 | PDOC ---
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 03/14/19 1236: CARDIO Progress Notes Date and Time Date of Service 03/14/2019 Time of Evaluation 1100 Subjective Subjective: No Chest Pain, No shortness of breath, No Palpitations Vitals Vitals Vital Signs Date Time Temp Pulse Resp B/P (MAP) Pulse Ox O2 Delivery O2 Flow Rate FiO2 03/14/19 11:27 98.7 77 20 159/66 (97) 92 Room Air 98.7 Weight Weight [ ] Input and Output Intake and Output Intake and Output 03/14/19 07:00 Intake Total 800 ml Output Total 300 ml Balance 500 ml Intake Oral 800 ml Output Urine Total 300 ml # Voids 5 Laboratory Labs Laboratory Tests Test 03/13/19 12:40 Urine Collection Type Unknown Urine Color Yellow Urine Clarity Clear Urine pH 5.5 Urine Specific [place] 1.025 Urine Protein 100 mg/dL (NEG-TRACE) Urine Glucose (UA) Negative mg/dL (NEG) Urine Ketones (Stick) Negative mg/dL (NEG) Urine Blood Trace (NEG) Urine Nitrite Negative (NEG) Urine Bilirubin Negative (NEG) Urine Urobilinogen Dipstick 0.2 mg/dL (0.2 mg/dL) Urine Leukocyte Esterase Negative (NEG) Urine RBC 1-2 /HPF (0-2) Urine WBC 1-4 /HPF (0-4) Urine Squamous Epithelial Cells Few /LPF Urine Bacteria Few /HPF (0-FEW) Urine Hyaline Casts Few /HPF Urine Mucus Marked /LPF Physical Exam HEENT: Neck Supple W Full Motion Chest: Symmetric LUNGS: Clear to Auscultation Heart: S1S2, RRR Abdomen: Soft N/T Extremities: No Calf Tenderness Neurology: alert, oriented, follow commands Assessment Assessment 1. Accelerated HTN: BP better with norvasc/losartan combination 2. PPM in situ: for SSS. [facility]. recent device check 02/01/2019 <1% burden 30% vpaced normal impedances. no ectopies 3. STEPHANIE: CPAP compliant 4. CKD3 5. Constipation: per PCP ] Recommendations 1. Negative for CHIQUIS. Continue BP regimen. Start on statin 2. May DC to home 3. HBPM as directed. Follow up in office in 4 weeks. RAYMOND AMADOR MD 03/15/19 0855: CARDIO Progress Notes Assessment Assessment Patient seen and examined 03/14/19. Agree with RACKER OCTAVE BOARD's assessment and plan. Blood pressure much better controlled. Renal arterial duplex scan did not show any significant renal artery stenosis. Continue current medical regimen. SILVIA ESPINOZA APRN Mar 14, 2019 12:36 RAYMOND AMADOR MD Mar 15, 2019 08:55
--- NOTE | 2019-03-14 14:00 | NUR ---
Educated patient on HTN, discontinued IV and tele. Patient was escorted out by Fern GARCIA by wheelchair.
--- NOTE | 2019-03-15 15:31 | DS ---
DATE OF DISCHARGE: 03/14/2019 ADMISSION DIAGNOSIS: Hypertensive urgency. DISCHARGE DIAGNOSIS: Resolving hypertensive urgency. HOSPITAL COURSE: The patient is a pleasant 78-year-old male who presented with hypertensive urgency with pressures in the 220 range. He was admitted. We gave him appropriate antihypertensives. Within 48 hours, he was back to normal. We discharged home on p.o. antihypertensives including Norvasc, losartan and Lasix. DISPOSITION: Home. ACTIVITY: As tolerated. DIET: Low sodium. MEDICATIONS: Please see the MRAD. TOTAL TIME: 32 minutes. BRIDGER VALLES DO DR: ORTIZ/zahra JOB#: [id number] / [id number]
== END 2019-03-14 13:41 | disposition home or self-care (01) | DRG 305 ==
LOC: ER 18:29 → 6 SOUTH 23:00
PROVIDERS: ADMIT Internal Medicine; ATTEND Internal Medicine
PROC: 5A09357 Assistance with Respiratory Ventilation, Less than 24 Consecutive Hours, Continuous Positive Airway Pressure (ICD-10-PCS; principal; 2019-03-14)
DX: I16.0 Hypertensive urgency (principal); N18.3 Chronic kidney disease, stage 3 (moderate); G47.33 Obstructive sleep apnea (adult) (pediatric); I12.9 Hypertensive chronic kidney disease with stage 1 through stage 4 chronic kidney disease, or unspecified chronic kidney disease; K59.00 Constipation, unspecified; N40.0 Benign prostatic hyperplasia without lower urinary tract symptoms; Z79.899 Other long term (current) drug therapy; Z82.49 Family history of ischemic heart disease and other diseases of the circulatory system; Z83.3 Family history of diabetes mellitus; Z95.0 Presence of cardiac pacemaker; M19.90 Unspecified osteoarthritis, unspecified site
CPT/HCPCS: 36415; 71045; 76770; 80053; 80061; 81001; 83880; 84443; 84484; 85007; 85025; 85610; 93005; J0360; J1940; J3490; G0378

== ENCOUNTER → 2019-07-03 | Outpatient (CLI) | payer MEDICARE ==
[~2019-07-03] MED LIST changes: +AMLO10TA8 PO; +AMLO5TAB10 PO; +ASPI-39 PO; +ATOR20TA PO; +CALC600T4 PO; +CHOL500016 PO; +FISH1CAP PO; +FLAX1CAP PO; +GARL10002 PO; +GLUC100018 PO; +LOSA100T14 PO; +MULT1TAB52 PO; -REGADENOSON 0.4 MG/5 ML DISP.SYRIN. IV ONE; +ZOLPIDEM 5 MG TABLET. PO ONE
--- NOTE | 2019-07-04 18:48 | SLEEP ---
DATE OF STUDY: 07/03/2019 REFERRING PHYSICIAN: Dr. Kalani Mays. The patient is 79 years old who weighs 250 pounds with a BMI of 33. The patient's Neversink score was 2. The patient had a previous sleep study in 2013 and was found to have severe STEPHANIE at that time and the patient has been on CPAP. This was another study requested by primary care physician. This was a split night study. During the night study, the patient spent 446 minutes in bed and slept for 324 minutes with a sleep efficiency of 69%. Sleep latency was 75 minutes with a REM latency of 119 minutes. Sleep architecture showed increased stage 1 and stage 2 sleep, reduced REM sleep and absent slow wave sleep. During the initial diagnostic portion of the study, the patient slept for 142 minutes. During that time, there were 24 obstructive apneas, 2 mixed apneas, no central apneas and 112 hypopneas. The patient's apnea hypopnea index was 59 per hour. Supine index was the same and REM index of 33 per hour. EKG monitoring revealed normal sinus rhythm. Average heart rate 71 beats per minute, no sustained arrhythmias observed. Nocturnal oximetry study revealed a mean oxygen saturation of 91% with the lowest of 75%, 53% of the time oxygen saturation remained between 80% and 89%. PLMS were seen at index of 63 per hour and 4 per hour caused EEG arousals. The patient met the criteria for CPAP initiation. It was started at 5 cm water and titrated up to 15 cm water. At the final pressure, the patient had significant improvement in sleep apnea. The patient's AHI was down to 9.6 per hour, which is mostly from mask leak. The patient slept for 38 minutes including supine and REM sleep. Oxygen saturation remained above 90%. IMPRESSION: 1. Severe sleep apnea-hypopnea syndrome at an apnea-hypopnea index of 59 per hour. 2. Nocturnal hypoxia secondary to obstructive sleep apnea, but resolved with CPAP. 3. Severe PLMS. RECOMMENDATIONS: 1. CPAP at 15 cm water should be used on a nightly basis. 2. Follow up in 4-6 weeks to assess compliance with CPAP and to document clinical improvement. 3. Weight loss is strongly advised. 4. 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 5. Cautioned regarding driving until symptoms of sleep apnea resolve with the use of CPAP. 6. The patient use medium size full face mask. TREY ZAMARRIPA MD DR: EMY/zahra JOB#: [id number] / [id number]
== END | disposition home or self-care (01) ==
LOC: SLPLAB 18:39
PROVIDERS: ATTEND Internal Medicine Critical Care Medicine
DX: G47.61 Periodic limb movement disorder (principal); G47.33 Obstructive sleep apnea (adult) (pediatric); R09.02 Hypoxemia
CPT/HCPCS: 95810

== ENCOUNTER → 2019-10-31 | Outpatient (CLI) | payer MEDICARE ==
[~2019-10-31] MED LIST changes: +MULT-445 PO; -MULT1TAB52 PO; -ZOLPIDEM 5 MG TABLET. PO ONE
--- NOTE | 2019-10-31 10:45 | CARD ---
MR#: [id number] Date of Study: 10/31/2019 Ordering Physician: RAYMOND AMADOR, Referring Physician: RAYMOND AMADOR Tech: Caryl Reyes RDCS APPROVED REPORT EXAM: Two-dimensional and M-mode echocardiogram with Doppler and color Doppler. Other Information Quality : Fair INDICATION Sick Sinus Syndrome Surgery/Intervention Pacemaker: Date: 05/2018 2D DIMENSIONS Left Atrium(2D)3.5 (1.6-4.0cm)IVSd1.3 (0.7-1.1cm) Aortic Root(2D)3.2 (2.0-3.7cm)LVDd5.5 (3.9-5.9cm) LVOT Diameter2.1 (1.8-2.4cm)PWd1.3 (0.7-1.1cm) LVDs3.3 (2.5-4.0cm)FS (%) 40.3 % SV103.5 mlLVEF(%)60.0 (>50%) Aortic Valve AoV Peak Mauro.132.0cm/sAoV VTI26.2cm AO Peak GR.7.0mmHgLVOT Peak Mauro.103.9cm/s LVOT VTI 21.01cmAO Mean GR.4mmHg ANGELO (VMAX)2.78te7LCW (VTI)2.87cm2 AI P 1/2 [id number] Mitral Valve MV E Zatleezq21.7cm/sMV DECEL [id number] MV A Irtlfesc63.3cm/sMV MAU77lf E/A Ratio0.6MVA (PHT)3.47cm2 TDI E/Lateral E'9.0E/Medial E'9.2 Tricuspid Valve TR P. Qltopwca073cy/sRAP FUZIPSBK5juUr TR Peak Gr.50qtDaYCSM42gyJu Pulmonary Vein S1 Wmhcomsg23.8cm/sD2 Kuchtmyx19.2cm/s LEFT VENTRICLE The left ventricle is normal size. There is mild concentric left ventricular hypertrophy. The left ve ntricular systolic function is normal. The Ejection Fraction is 55-60%. Apical motion consistent with pacemaker activation. Transmitral Doppler flow pattern is Grade I-abnormal relaxation pattern. RIGHT VENTRICLE The right ventricle is normal size. The right ventricular systolic function is normal. There is a pac emaker lead in the right ventricle. ATRIA The left atrium size is normal. The right atrium size is normal. A pacemaker is seen in the right atr ium consistent with history. The interatrial septum is intact with no evidence for an atrial septal d efect or patent foramen ovale as noted on 2-D or Doppler imaging. AORTIC VALVE The aortic valve is not well visualized but appears to be functioning normally by Doppler interrogati on. Doppler and Color Flow revealed trace aortic regurgitation. There is no significant aortic valvul ar stenosis. MITRAL VALVE The mitral valve is calcified but opens well. There is no evidence of mitral valve prolapse. There is no mitral valve stenosis. Doppler and Color Flow revealed no mitral valve regurgitation noted. TRICUSPID VALVE The tricuspid valve is normal in structure and function. Doppler and Color Flow revealed trace tricus pid regurgitation. The PA pressure was estimated at 22 mmHg. There is no tricuspid valve stenosis. PULMONIC VALVE The pulmonic valve is not well visualized. Doppler and Color Flow revealed no pulmonic valvular regur gitation. There is no pulmonic valvular stenosis. GREAT VESSELS The aortic root is normal in size. The ascending aorta is not well seen. The IVC is normal in size an d collapses >50% with inspiration. PERICARDIAL EFFUSION There is no evidence of significant pericardial effusion. Critical Notification Critical Value: No <Conclusion> The left ventricular systolic function is normal. The Ejection Fraction is 55-60%. Transmitral Doppler flow pattern is Grade I-abnormal relaxation pattern. There is a pacemaker lead in the right atrium and ventricle. Trace aortic regurgitation. Trace tricuspid regurgitation. The PA pressure was estimated at 22 mmHg. There is no evidence of significant pericardial effusion. Signed by : Raymond Amador, Electronically Approved : 10/31/2019 10:44:35
== END | disposition home or self-care (01) ==
LOC: ECHO 08:39
PROVIDERS: ATTEND Internal Medicine Cardiovascular Disease
DX: I34.8 Other nonrheumatic mitral valve disorders (principal); I49.5 Sick sinus syndrome
CPT/HCPCS: 93306

== ENCOUNTER → 2019-12-18 | Outpatient (CLI) | payer MEDICARE ==
[~2019-12-18] MED LIST changes: -CALC600T4 PO; +CALC600T5 PO; +GADOTERATE 7.5 MMOL/15ML VIAL. IVP ONE
[2019-12-18 13:21] LABS: CREATININE 1.9 mg/dL (0.7-1.3); GFR 34.4
--- NOTE | 2019-12-18 14:00 | NUR ---
Pt here for MRI, due to having pacemaker, pacemaker adjusted by [employer] after receiving direction from Dr Fong. Pt tolerated MRI without difficulty, monitored throughout, VSS. Pt ambulated out with family following procedure. AUSTIN DELUNA
--- NOTE | 2019-12-18 14:52 | RAD ---
BRAIN WO/W CONTRAST Date: 12/18/2019 1:00 PM Indication: MEMORY LOSS Comparison: None. Technique: Multiplanar multisequence MRI of the brain was performed with and without intravenous contrast using the standard protocol. 23 cc Dotarem contrast was administered intravenously during the exam. Findings: Moderate-sized area of encephalomalacia with DWI hyperintensity/ADC isointensity along the margin. 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 Small amount of associated gradient susceptibility artifact consistent with chronic blood products. The ventricles are normal in size and configuration without hydrocephalus. Mild scattered FLAIR hyperintensities in the subcortical and periventricular deep white matter, a nonspecific finding, most commonly seen with chronic small vessel ischemic disease. Mild cerebral volume loss. Small to moderate-sized area of left frontal encephalomalacia. The scalp and calvarium are normal. The pituitary and sella are normal. No Chiari malformation. The visualized upper cervical spine is normal. The visualized orbits and globes are normal. The visualized paranasal sinuses are clear. The mastoid air cells are clear. Normal flow voids within the vertebral, basilar, and internal carotid arteries indicating patency. IMPRESSION: 1. 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 2. Additional small to moderate-sized area of left frontal encephalomalacia. 3. Mild chronic small vessel ischemic disease and generalized cerebral volume loss. Electronically signed by: Quinton Cotto MD (12/18/2019 2:49 PM) [id number]
== END | disposition home or self-care (01) ==
LOC: MRI 12:32
PROVIDERS: ATTEND Nurse Practitioner Family
DX: I67.82 Cerebral ischemia (principal); I67.89 Other cerebrovascular disease; G93.89 Other specified disorders of brain; I63.89 Other cerebral infarction; R41.3 Other amnesia
CPT/HCPCS: 36415; 70553; 82565; A9575

== ENCOUNTER → 2020-02-12 | Outpatient (CLI) | payer MEDICARE ==
[~2020-02-12] MED LIST changes: -CALC600T5 PO; +CALC600T6 PO; -GADOTERATE 7.5 MMOL/15ML VIAL. IVP ONE
--- NOTE | 2020-02-12 17:11 | RAD ---
Examination: DOPPLER CAROTID BILAT History: Reason: Cerebrovascular accident CVA due to other mechanism / Spl. Instructions: / History: Comparison study: None available. Findings: The common, internal and external carotid arteries were examined by grayscale, color and spectral Doppler ultrasound. Flow in both vertebral arteries was antegrade and normal. The following are the velocities and ratios in the carotid arteries on both sides: Right side: Peak systolic flow velocity of the CCA is 92 cm/sec. Peak systolic flow velocity of the ICA is 112 cm/sec. Middle and distal internal carotid arteries are not visualized. The ICA/CCA ratio is 0.69. Peak end diastolic flow velocity of the ICA is 13 cm/sec. The peak systolic velocity of the ECA is 112 cm/sec. No significant plaque formation is identified. Left side: Peak systolic flow velocity of the CCA is 106 cm/sec. Peak systolic flow velocity of the ICA is 35 cm/sec. Middle and distal internal carotid arteries not visualized. The ICA/CCA ratio is 0.92. Peak end diastolic flow velocity of the ICA is 15 cm/sec. Peak systolic flow velocity of the ECA is 99 cm/sec. No significant plaque formation is identified. Vertebral arteries: Bilateral vertebral arteries demonstrate antegrade flow. <50% ICA Stenosis: PSV < 125cm/s (EDV < 40cm/s; SVR < 2.0) 50-69% ICA Stenosis: PSV < 125-229cm/s (EDV 40-99cm/s; SVR 2.0-3.9) >70% ICA Stenosis: PSV > 230cm/s (EDV >100cm/s; SVR >4.0) Impression: The middle and distal internal carotid arteries could not be imaged due to the patient's body habitus. No significant atheromatous plaque identified involving the visualized arterial structures. Consider further evaluation with CT angiography for more complete assessment of the extracranial internal carotid arteries. PQRS Compliance Statement - Stenosis calculations for CT, MR and conventional angiography are based upon measurement of the distal ICA diameter in accordance with the NASCET methodology. Stenosis calculations for carotid ultrasound studies are derived from validated velocity criteria which are known to correlate with the NASCET methodology. Electronically signed by: Konrad Burgess MD (02/12/2020 5:08 PM) [id number]
== END | disposition home or self-care (01) ==
LOC: US 14:29
PROVIDERS: ATTEND Psychiatry & Neurology Neurology with Special Qualifications in Child Neurology
DX: I63.89 Other cerebral infarction (principal)
CPT/HCPCS: 93880